=== PATIENT | male | born 1960 | race Caucasian/White ===

== ENCOUNTER 2018-06-08 03:40 | Emergency (ER) | payer MEDICARE, SELFPAY ==
[2018-06-08 03:45] VITALS: BP 160/75; PULSE 85; RESP 20; TEMP 37.1; O2SAT 97
--- NOTE | 2018-06-08 04:37 | W.ED.GENAD ---
Discharge Plan Discharge Details Chief Complaint: RashLesion Clinical Impression: Perirectal skin irritation Reason For Visit: JUAN CARLOS Primary Care Provider: Brent El ED Provider: Arnold Garnica Disposition Patient Disposition: HOME Condition: Good Home Meds and New Rx's Prescriptions: Continue fluconazole [Diflucan] 100 mg Tablet PO DAILY RF: 0 glipizide 5 mg Tablet PO DAILY RF: 0 Discharge Instructions Additional Instructions: Be sure to continue your current medications. Since you are not sure what meds you are on we will unable to do the medication reconciliation today. Take medications as previously prescribed. You should use butt paste or Desitin to help keep the skin protected. Follow-up with primary care in 1-2 weeks. Return to ED for fever, rectal pain, abdominal pain, other concerns. Referrals: Brent El [Primary Care Provider] - Medical Decision Making MDM Narrative Medical decision making narrative: Patient with perirectal area that appears to be candidal in nature as his primary had concluded. He is already on Diflucan as well as antifungal cream. He has a lot of macerated and excoriated skin. Recommend using something like butt paste to help protect the skin. He may use Motrin and Tylenol as needed for discomfort. Follow-up with primary care in the next 1-2 weeks. HPI - General Adult General Mode of arrival: EMS. Date/Time Provider Initiated Documentation: 06/08/18 03:50. Limitations to Documentation: no limitations. Information obtained by: patient. HPI Narrative-FOR DICTATION ONLY HPI Narrative: Patient presents tonight because of pain due to a rash that he has had in his perirectal area for a couple weeks now. This morning it was burning him a lot and he felt he needed to be seen. He had a little bit of nausea but no abdominal pain. He has no difficulty urinating. He is having no difficulty defecating. He has had no fever. He is already on Diflucan as well as a cream. He does report that the rash has actually got better and is no longer in his groin or scrotum but just around the perirectal area. Related Data Home Medications Medication Instructions Recorded Confirmed fluconazole [Diflucan] mg PO DAILY 06/08/18 glipizide mg PO DAILY 06/08/18 Allergies Allergy/AdvReac Type Severity Reaction Status Date / Time No Known Allergies Allergy Unverified 06/08/18 03:50 General Stated Complaint: RashLesion TEGAN: 4 Review of Systems Constitutional Denies chills, Denies fever(s) and Denies malaise Gastrointestinal Denies abdominal pain, Denies diarrhea, Reports nausea and Denies vomiting Genitourinary Denies hematuria, Denies genital pain and Denies dysuria Integumentary/Breasts Reports rash [facility] Medical History Diabetes mellitus (Chronic) HTN (hypertension) (Chronic) Hypercholesterolemia (Chronic) TBI (traumatic brain injury) (Chronic) Social History Smoking/Tobacco Use Status: Never Surgical History S/P appy (Inactive) Exam Const General: cooperative, comfortable and no acute distress Nutritional Appearance: obese Orientation: alert and oriented x3 HENMT Head: normocephalic and atraumatic GI Inspection: normal to inspection Palpation: soft, no guarding and nontender Rectal Exam: visual inspection abnormal excoriations (Significant excoriation and maceration of the perirectal area with satellite lesions consistent with Gisselle infection.) and other (Digital exam not performed. Visualization of the perirectal area done with male rotary driller prospecting present.) Penis: normal penis Scrotum: scrotum normal Skin Rashes: rashes noted (Perirectal area) Course Vital Signs Temperature 98.8 F 06/08/18 03:45 Pulse 85 06/08/18 03:45 Respiratory Rate 20 06/08/18 03:45 Blood Pressure 160/75 H 06/08/18 03:45 Pulse Oximetry 97 06/08/18 03:45 Temperature 98.8 F 06/08/18 03:45 Pulse 85 06/08/18 03:45 Respiratory Rate 20 06/08/18 03:45 Blood Pressure 160/75 H 06/08/18 03:45 Pulse Oximetry 97 06/08/18 03:45
--- NOTE | 2018-06-08 04:45 | ED.GENADUL_ITS ---
Discharge Plan Discharge Details Chief Complaint: RashLesion Clinical Impression: Perirectal skin irritation Reason For Visit: JUAN CARLOS Primary Care Provider: Brent El ED Provider: Arnold Garnica Disposition Patient Disposition: HOME Condition: Good Home Meds and New Rx's Prescriptions: Continue fluconazole [Diflucan] 100 mg Tablet PO DAILY RF: 0 glipizide 5 mg Tablet PO DAILY RF: 0 Discharge Instructions Additional Instructions: Be sure to continue your current medications. Since you are not sure what meds you are on we will unable to do the medication reconciliation today. Take medications as previously prescribed. You should use butt paste or Desitin to help keep the skin protected. Follow-up with primary care in 1-2 weeks. Return to ED for fever, rectal pain, abdominal pain, other concerns. Referrals: Brent El [Primary Care Provider] - Medical Decision Making MDM Narrative Medical decision making narrative: Patient with perirectal area that appears to be candidal in nature as his primary had concluded. He is already on Diflucan as well as antifungal cream. He has a lot of macerated and excoriated skin. Recommend using something like butt paste to help protect the skin. He may use Motrin and Tylenol as needed for discomfort. Follow-up with primary care in the next 1-2 weeks. HPI - General Adult General Mode of arrival: EMS . Date/Time Provider Initiated Documentation: 06/08/18 03:50 . Limitations to Documentation: no limitations . Information obtained by: patient . HPI Narrative-FOR DICTATION ONLY HPI Narrative: Patient presents tonight because of pain due to a rash that he has had in his perirectal area for a couple weeks now. This morning it was burning him a lot and he felt he needed to be seen. He had a little bit of nausea but no abdominal pain. He has no difficulty urinating. He is having no difficulty defecating. He has had no fever. He is already on Diflucan as well as a cream. He does report that the rash has actually got better and is no longer in his groin or scrotum but just around the perirectal area. Related Data Home Medications Medication Instructions Recorded Confirmed fluconazole [Diflucan] mg PO DAILY 06/08/18 glipizide mg PO DAILY 06/08/18 Allergies Allergy/AdvReac Type Severity Reaction Status Date / Time No Known Allergies Allergy Unverified 06/08/18 03:50 General Stated Complaint: RashLesion TEGAN: 4 Review of Systems Constitutional Denies chills, Denies fever(s) and Denies malaise Gastrointestinal Denies abdominal pain, Denies diarrhea, Reports nausea and Denies vomiting Genitourinary Denies hematuria, Denies genital pain and Denies dysuria Integumentary/Breasts Reports rash [facility] Medical History Diabetes mellitus (Chronic) HTN (hypertension) (Chronic) Hypercholesterolemia (Chronic) TBI (traumatic brain injury) (Chronic) Social History Smoking/Tobacco Use Status: Never Surgical History S/P appy (Inactive) Exam Const General: cooperative, comfortable and no acute distress Nutritional Appearance: obese Orientation: alert and oriented x3 HENMT Head: normocephalic and atraumatic GI Inspection: normal to inspection Palpation: soft, no guarding and nontender Rectal Exam: visual inspection abnormal excoriations (Significant excoriation and maceration of the perirectal area with satellite lesions consistent with Gisselle infection.) and other (Digital exam not performed. Visualization of the perirectal area done with male stockroom coordinator present.) Penis: normal penis Scrotum: scrotum normal Skin Rashes: rashes noted (Perirectal area) Course Vital Signs Temperature 98.8 F 06/08/18 03:45 Pulse 85 06/08/18 03:45 Respiratory Rate 20 06/08/18 03:45 Blood Pressure 160/75 H 06/08/18 03:45 Pulse Oximetry 97 06/08/18 03:45 Temperature 98.8 F 06/08/18 03:45 Pulse 85 06/08/18 03:45 Respiratory Rate 20 06/08/18 03:45 Blood Pressure 160/75 H 06/08/18 03:45 Pulse Oximetry 97 06/08/18 03:45
[2018-06-08 04:54] VITALS: BP 160/75; PULSE 85; RESP 20; TEMP 37.1; O2SAT 97
== END 2018-06-08 05:00 | disposition home or self-care (01) ==
LOC: ER 05:08
PROVIDERS: Emergency Provider Emergency Medicine; PCP Internal Medicine
DX: L29.0 Pruritus ani (principal); E11.9 Type 2 diabetes mellitus without complications; I10 Essential (primary) hypertension
CPT/HCPCS: 99283

== ENCOUNTER 2018-11-24 16:53 | Emergency (ER) | payer MEDICARE, SELFPAY ==
[2018-11-24 16:58] VITALS: BP 180/108; PULSE 105; RESP 18; TEMP 36.6; O2SAT 97
--- NOTE | 2018-11-24 17:07 | W.ED.GENAD ---
Discharge Plan Disposition Patient Disposition: HOME Condition: Stable Discharge Details Chief Complaint: Cellulitis Clinical Impression: Abscess, rectum Primary Care Provider: Jake León ED Provider: Jake Rodriguez Home Meds and New Rx's Prescriptions: New metronidazole [Flagyl] 500 mg tablet 500 mg PO TID Qty: 21 RF: 0 ciprofloxacin HCl 500 mg tablet 500 mg PO BID Qty: 14 RF: 0 Discharge Instructions Instructions: Abscess (ED) Additional Instructions: follow up as scheduled with your primary care provider on and discuss being referred to a general surgeon at the [place] If you develop severe abdominal pain, fevers or persistent vomit return to the emergency department Medical Decision Making 57 yo male states he has had intermittent drainage from rectum the past few months. Saw pcp today for drainage and was sent here. No abd pain, fevers, chills, vomit. On exam has fluctuance at 1oclock position that is already draining, no deep fluctuance felt. Discussed the case with [facility] [address] Dr. Rueda who recommended oral abx and f/u as outpatient. HE is a [facility] patient and is going to see his pcp on Friday. He will discuss general surgery f/u with them. Do not feel workup for deeper abscess indicated given superficial abscess on exam. HE understands to return immediately for fevers or worsening pain Differential Diagnosis rectal abscess, colorectal abscess HPI General Mode of arrival: ambulatory. Date/Time Provider Initiated Documentation: 11/24/18 16:55. Limitations to Documentation: no limitations. Information obtained by: patient. History of Present Illness 57 year old M presents to the emergency department with the chief complaint of rectal drainage, described as mild, Patient started experiencing this day(s) (1) and it has been constant. No relieving factors improve symptom(s), No exacerbating factors reported . Patient notes no other symptoms.. Patient did receive the following treatments prior to arrival, none Related Data Home Medications Medication Instructions Recorded Confirmed ciprofloxacin HCl 500 mg PO BID #14 tab 11/24/18 metronidazole [Flagyl] 500 mg PO TID #21 tab 11/24/18 Previous Rx's Medication Instructions Recorded ciprofloxacin HCl 500 mg PO BID #14 tab 11/24/18 metronidazole [Flagyl] 500 mg PO TID #21 tab 11/24/18 Allergies Allergy/AdvReac Type Severity Reaction Status Date / Time No Known Allergies Allergy Unverified 11/24/18 17:04 General Stated Complaint: Cellulitis TEGAN: 3 Review of Systems Review of Systems All systems reviewed & are unremarkable except as noted in HPI and below Constitutional Denies chills, Denies fever(s) and Denies weakness Eyes Denies loss of vision Cardiovascular Denies chest pain and Denies dyspnea Respiratory Denies cough and Denies dyspnea Gastrointestinal Denies abdominal pain, Denies nausea and Denies vomiting Neurologic Denies loss of vision and Denies weakness Psychiatric Denies depression Endocrine Denies cold intolerance and Denies heat intolerance [facility] Medical History Diabetes mellitus (Chronic) HTN (hypertension) (Chronic) Hypercholesterolemia (Chronic) TBI (traumatic brain injury) (Chronic) Social History Smoking and Tabacco status: Never Exam Const General: no acute distress Orientation: alert HENMT Head: normal to inspection Ears: external ears normal General nose exam: external nose normal Mouth: moist mucous membranes Eyes General: appearance normal, both eyes and all related structures Neck Neck: normal visual inspection Resp Effort & Inspection: normal respiratory effort and able to speak in complete sentences Cardio Rate: regular rate GI Palpation: soft and nontender Rectal Exam: other (mild nontender and not warm erythema on both sides of rectal inlet, see mdm) Skin General skin exam: no rashes or lesions noted Neuro General: alert and oriented x3 Extrem General: normal to inspection Psych Mental Status: mental status grossly normal Course Vital Signs Temperature 36.6 C 11/24/18 16:58 Pulse 105 H 11/24/18 16:58 Respiratory Rate 18 11/24/18 16:58 Blood Pressure 180/108 H 11/24/18 16:58 Pulse Oximetry 97 11/24/18 16:58 Temperature 36.6 C 11/24/18 16:58 Temperature Source Temporal Artery Scan 11/24/18 16:58 Pulse 105 H 11/24/18 16:58 Respiratory Rate 18 11/24/18 16:58 Respiratory Effort Non-Labored 11/24/18 17:02 Blood Pressure 180/108 H 11/24/18 16:58 Blood Pressure Position Sitting 11/24/18 16:58 Pulse Oximetry 97 11/24/18 16:58 Oxygen Delivery Method Room Air 11/24/18 16:58 Oxygen Flow Rate 0 11/24/18 16:58 Pain Level 7 11/24/18 16:58
--- NOTE | 2018-11-24 17:11 | ED.GENADUL_ITS ---
Discharge Plan Disposition Patient Disposition: HOME Condition: Stable Discharge Details Chief Complaint: Cellulitis Clinical Impression: Abscess, rectum Primary Care Provider: Jake León ED Provider: Jake Rodriguez Home Meds and New Rx's Prescriptions: New metronidazole [Flagyl] 500 mg tablet 500 mg PO TID Qty: 21 RF: 0 ciprofloxacin HCl 500 mg tablet 500 mg PO BID Qty: 14 RF: 0 Discharge Instructions Instructions: Abscess (ED) Additional Instructions: follow up as scheduled with your primary care provider on and discuss being referred to a general surgeon at the [place] If you develop severe abdominal pain, fevers or persistent vomit return to the emergency department Medical Decision Making 57 yo male states he has had intermittent drainage from rectum the past few months. Saw pcp today for drainage and was sent here. No abd pain, fevers, chills, vomit. On exam has fluctuance at 1oclock position that is already draining, no deep fluctuance felt. Discussed the case with social media content manager surgeon Dr. Rueda who recommended oral abx and f/u as outpatient. HE is a [facility] patient and is going to see his pcp on Friday. He will discuss general surgery f/u with them. Do not feel workup for deeper abscess indicated given superficial abscess on exam. HE understands to return immediately for fevers or worsening pain Differential Diagnosis rectal abscess, colorectal abscess HPI General Mode of arrival: ambulatory . Date/Time Provider Initiated Documentation: 11/24/18 16:55 . Limitations to Documentation: no limitations . Information obtained by: patient . History of Present Illness 57 year old M presents to the emergency department with the chief complaint of rectal drainage, described as mild, Patient started experiencing this day(s) (1) and it has been constant. No relieving factors improve symptom(s), No exacerbating factors reported . Patient notes no other symptoms.. Patient did receive the following treatments prior to arrival, none Related Data Home Medications Medication Instructions Recorded Confirmed ciprofloxacin HCl 500 mg PO BID #14 tab 11/24/18 metronidazole [Flagyl] 500 mg PO TID #21 tab 11/24/18 Previous Rx's Medication Instructions Recorded ciprofloxacin HCl 500 mg PO BID #14 tab 11/24/18 metronidazole [Flagyl] 500 mg PO TID #21 tab 11/24/18 Allergies Allergy/AdvReac Type Severity Reaction Status Date / Time No Known Allergies Allergy Unverified 11/24/18 17:04 General Stated Complaint: Cellulitis TEGAN: 3 Review of Systems Review of Systems All systems reviewed & are unremarkable except as noted in HPI and below Constitutional Denies chills, Denies fever(s) and Denies weakness Eyes Denies loss of vision Cardiovascular Denies chest pain and Denies dyspnea Respiratory Denies cough and Denies dyspnea Gastrointestinal Denies abdominal pain, Denies nausea and Denies vomiting Neurologic Denies loss of vision and Denies weakness Psychiatric Denies depression Endocrine Denies cold intolerance and Denies heat intolerance [facility] Medical History Diabetes mellitus (Chronic) HTN (hypertension) (Chronic) Hypercholesterolemia (Chronic) TBI (traumatic brain injury) (Chronic) Social History Smoking and Tabacco status: Never Exam Const General: no acute distress Orientation: alert HENMT Head: normal to inspection Ears: external ears normal General nose exam: external nose normal Mouth: moist mucous membranes Eyes General: appearance normal, both eyes and all related structures Neck Neck: normal visual inspection Resp Effort & Inspection: normal respiratory effort and able to speak in complete sentences Cardio Rate: regular rate GI Palpation: soft and nontender Rectal Exam: other (mild nontender and not warm erythema on both sides of rectal inlet, see mdm) Skin General skin exam: no rashes or lesions noted Neuro General: alert and oriented x3 Extrem General: normal to inspection Psych Mental Status: mental status grossly normal Course Vital Signs Temperature 36.6 C 11/24/18 16:58 Pulse 105 H 11/24/18 16:58 Respiratory Rate 18 11/24/18 16:58 Blood Pressure 180/108 H 11/24/18 16:58 Pulse Oximetry 97 11/24/18 16:58 Temperature 36.6 C 11/24/18 16:58 Temperature Source Temporal Artery Scan 11/24/18 16:58 Pulse 105 H 11/24/18 16:58 Respiratory Rate 18 11/24/18 16:58 Respiratory Effort Non-Labored 11/24/18 17:02 Blood Pressure 180/108 H 11/24/18 16:58 Blood Pressure Position Sitting 11/24/18 16:58 Pulse Oximetry 97 11/24/18 16:58 Oxygen Delivery Method Room Air 11/24/18 16:58 Oxygen Flow Rate 0 11/24/18 16:58 Pain Level 7 11/24/18 16:58
--- NOTE | 2018-11-24 17:34 | NUR.NOTE ---
Nursing Note: At patient request faxed the discharge instructions and the prescriptions to the [place]. [phone]. Domi Johnson.
== END 2018-11-24 17:33 | disposition home or self-care (01) ==
PROVIDERS: Emergency Provider Emergency Medicine; PCP Internal Medicine
DX: K61.1 Rectal abscess (principal); I10 Essential (primary) hypertension; E11.9 Type 2 diabetes mellitus without complications
CPT/HCPCS: 99283

== ENCOUNTER 2020-09-19 01:50 | Outpatient (CLI) | payer OTHER, MEDICARE, SELFPAY ==
[2020-09-21 21:27] LABS: COVID-19 RT-PCR Result NEGATIVE (Negative)
== END 2020-09-19 02:10 ==
PROVIDERS: PCP Internal Medicine; Visit Provider Nurse Practitioner Primary Care
DX: R50.9 Fever, unspecified (principal); R06.02 Shortness of breath; R53.83 Other fatigue
CPT/HCPCS: U0003

== ENCOUNTER 2023-05-28 14:58 | Emergency (ER) | payer OTHER, SELFPAY ==
[2023-05-28 15:26] VITALS: BP 145/85; PULSE 72; RESP 22; TEMP 36.8; O2SAT 97
--- NOTE | 2023-05-28 16:45 | RT.EKG_ITS ---
APPROVED REPORT Exam: Resting ECG Reason for Exam: dizziness Patient Location: E HR:69 bpm ECG Measurements Heart Rate 69 AXIS SC 224 P 78 QRSd 94 QRS -28 QT 413 T 43 QTc 444 Conclusion Sinus rhythm...normal P axis, V-rate 60- 99 Prolonged SC interval...SC >220, V-rate 50- 90 sinus tach, left axis, non ischemic
[2023-05-28 17:20] LABS: Abs Immature Grans 0.04 10^3/uL (0.0-0.06); Absolute Basophil Count 0.05 10^3/uL (0.0-0.2); Absolute Lymphocyte Count 2.32 10^3/uL (1.2-3.4); Absolute Monocyte Count 0.69 10^3/uL (0.1-0.8); Absolute Neutrophil Count 4.97 10^3/uL (1.2-6.7); Basophils % 0.6; Eosinophils % 3.6; HCT 43.4 % (40.0-50.0); HGB 15.1 g/dL (13.5-17.5); Immature Grans % 0.5; Lymphocytes % 27.7; MCHC 34.8 % (32.0-36.0); MCV 86 fL (80-95); MPV 8.8 fL (8.0-11.0); Monocytes % 8.2; Neutrophils % 59.4; Platelet Count 220 10^3/uL (130-400); RBC 5.03 10^6/uL (4.36-5.78); RDW 13.1 % (11.8-14.1); WBC 8.37 10^3/uL (4.4-10.8)
[2023-05-28 17:29] LABS: Bilirubin Negative (Negative); Blood Negative (Negative); Clarity Clear (Clear); Glucose Negative (Negative); Ketones Negative (Negative); Leukocyte Esterase Negative (Negative); Nitrite Negative (Negative); Specific Gravity >= 1.030 (1.005-1.025); pH 5.5 (5-8)
[2023-05-28 17:30] LABS: ALT 35 U/L (16-63); AST 18 U/L (15-37); Alkaline Phosphatase 95 U/L (46-116); Anion Gap 4.3 mmol/L (3-11); BUN 21 mg/dL (7-18); Bilirubin, Total 0.6 mg/dL (0.2-1.0); CO2 31.7 mmol/L (21.0-32.0); CREATININE 1.2 mg/dL (0.70-1.30); Chloride 102 mmol/L (98-107); Estimated GFR 67.95 (mL/min/1.73m2); Glucose 121 mg/dL (74-106); Magnesium 1.8 mg/dL (1.8-2.4); Potassium 4.2 mmol/L (3.5-5.1); Sodium 138 mmol/L (136-145); Total Protein 7.6 g/dL (6.4-8.2)
--- NOTE | 2023-05-28 17:50 | W.ED.GENAD ---
Discharge Plan Disposition Patient Disposition: Home Discharge Details Clinical Impression: Malaise Primary Care Provider: Jake León ED Provider: Frances Edward Home Meds and New Rx's Prescriptions: Continued bupropion HCl 150 mg Tablet Sustained-Release 12 Hr 300 mg PO DAILY atorvastatin 20 mg Tablet 20 mg PO DAILY ibuprofen 800 mg Tablet 800 mg PO TID PRN metoprolol tartrate 100 mg Tablet 100 mg PO BID glipizide 10 mg Tablet 20 mg PO BID lisinopril 10 mg Tablet 40 mg PO DAILY omeprazole 20 mg Capsule,Delayed Release(Dr/Ec) 20 mg PO BID albuterol sulfate 90 mcg/actuation Hfa Aerosol Inhaler 2 puff INHALATION QID PRN fluticasone propionate 50 mcg/actuation [place],Suspension 2 spray INTRANASAL DAILY cetirizine 10 mg Tablet 10 mg PO DAILY carbidopa 25 mg Tablet 25 mg PO TID gabapentin 300 mg Tablet 300 mg PO BID aripiprazole 2 mg Tablet 2 mg PO DAILY cholecalciferol (vitamin D3) 50 mcg (2,000 unit) Tablet 100 mcg PO DAILY semaglutide 0.25 mg or 0.5 mg(2 mg/1.5 mL) Pen Injector 0.25 mg SUBCUT 4-8XD Rx Instructions: once a week Discharge Instructions Additional Instructions: follow-up with your primary care physician, your diagnostic labs all are within normal limits Please return should you have new or worsening complaints Referrals: Jake León [Primary Care Provider] - Medical Decision Making 62-year-old male, alert, oriented, of decisional capacity, nonfocal neurological exam, essentially asymptomatic at time of assessment, secondary to history of diabetes, diagnostic blood work was ordered and EKG, these do not show evidence of acute abnormality Patient is ambulatory with steady gait with a nonfocal neurological exam He is discharged home in stable condition with stable vitals, return precautions reviewed and patient expressed understanding, HPI General Date/Time Provider Initiated Documentation: 05/28/23 16:50. HPI Narrative: This 62-year-old male presents with nausea and vomiting which started Friday, he had 1 episode this is resolved. He also lost his balance on Friday, he has a history of TBI and states that this is not new for him, he denies any head injury. He denies any current complaints. [facility] He denies chest pain, shortness of breath, dizziness, weakness, persistent nausea and vomiting, or any additional complaints at this time. Related Data Home Medications Medication Instructions Recorded Confirmed albuterol sulfate 90 mcg/actuation 2 puff inhalation QID PRN 11/24/18 11/24/18 aerosol inhaler atorvastatin 20 mg tablet 20 mg PO DAILY 11/24/18 11/24/18 bupropion HCl 150 mg tablet,12 hr 300 mg PO DAILY 11/24/18 05/28/23 sustained-release fluticasone propionate 50 2 spray intranasal DAILY 11/24/18 11/24/18 mcg/actuation nasal spray,suspension glipizide 10 mg tablet 20 mg PO BID 11/24/18 11/24/18 ibuprofen 800 mg tablet 800 mg PO TID PRN 11/24/18 11/24/18 lisinopril 10 mg tablet 40 mg PO DAILY 11/24/18 05/28/23 metoprolol tartrate 100 mg tablet 100 mg PO BID 11/24/18 11/24/18 omeprazole 20 mg capsule,delayed 20 mg PO BID 11/24/18 11/24/18 release aripiprazole 2 mg tablet 2 mg PO DAILY 05/28/23 05/28/23 carbidopa 25 mg tablet 25 mg PO TID 05/28/23 05/28/23 cetirizine 10 mg tablet 10 mg PO DAILY 05/28/23 05/28/23 cholecalciferol (vitamin D3) 50 100 mcg PO DAILY 05/28/23 05/28/23 mcg (2,000 unit) tablet gabapentin 300 mg tablet 300 mg PO BID 05/28/23 05/28/23 semaglutide 0.25 mg or 0.5 mg (2 0.25 mg subcut 4-8XD 05/28/23 05/28/23 mg/1.5 mL) subcutaneous pen injector Allergies Allergy/AdvReac Type Severity Reaction Status Date / Time No Known Allergies Allergy Unverified 05/28/23 15:15 General Stated Complaint: Nausea/Vomit/Diar TEGAN: 3 PFSH All Active Problems (Updated 05/28/23 @ 17:52 by MATT Augustine) Malaise (Acute) Medical History (Updated 05/28/23 @ 17:52 by MATT Augustine) Diabetes mellitus HTN (hypertension) Hypercholesterolemia TBI (traumatic brain injury) Surgical History S/P appy Social History Smoking/Tobacco Use Status: Never Smoking risk assessment performed?: Yes Drug use: Never Do you feel safe in your relationship?: Yes Course Vital Signs Vital signs: Vital Signs Temperature 36.8 C 05/28/23 15:26 Pulse 72 05/28/23 15:26 Respiratory Rate 22 05/28/23 15:26 Blood Pressure 145/85 H 05/28/23 15:26 Pulse Oximetry 97 05/28/23 15:26 Temperature 36.8 C 05/28/23 15:26 Temperature Source Temporal Artery Scan 05/28/23 15:26 Pulse 72 05/28/23 15:26 Respiratory Rate 22 05/28/23 15:26 Blood Pressure 145/85 H 05/28/23 15:26 Blood Pressure Position Sitting 05/28/23 15:26 Pulse Oximetry 97 05/28/23 15:26 Oxygen Delivery Method Room Air 05/28/23 15:26 Oxygen Flow Rate 0 05/28/23 15:26 Pain Level 0 05/28/23 15:26 Lab/Test Results Lab/Test Results: Laboratory Tests Range/Units 05/28/23 05/28/23 05/28/23 17:06 17:06 17:22 WBC (4.4-10.8) 10^3/uL 8.37 RBC (4.36-5.78) 10^6/uL 5.03 Hgb (13.5-17.5) g/dL 15.1 Hct (40.0-50.0) % 43.4 MCV (80-95) fL 86 MCH (27.0-33.0) pg 30.0 MCHC (32.0-36.0) % 34.8 RDW (11.8-14.1) % 13.1 Plt Count (130-400) 10^3/uL 220 MPV (8.0-11.0) fL 8.8 Immature Gran % 0.5 Neutrophils % 59.4 Lymphocytes % 27.7 Monocytes % 8.2 Eosinophils % 3.6 Basophils % 0.6 Nucleated RBC % (0.0-0.3) % 0.0 Absolute Neutrophils (1.2-6.7) 10^3/uL 4.97 Absolute Lymphocytes (1.2-3.4) 10^3/uL 2.32 Absolute Monocytes (0.1-0.8) 10^3/uL 0.69 Absolute Eosinophils (0.0-0.7) 10^3/uL 0.30 Absolute Basophils (0.0-0.2) 10^3/uL 0.05 Sodium (136-145) mmol/L 138 Potassium (3.5-5.1) mmol/L 4.2 Chloride (98-107) mmol/L 102 Carbon Dioxide (21.0-32.0) mmol/L 31.7 Anion Gap (3-11) mmol/L 4.3 BUN (7-18) mg/dL 21 H Creatinine (0.70-1.30) mg/dL 1.2 Est GFR (CKD-EPI 2020) (mL/min/1.73m2) 67.95 Glucose (74-106) mg/dL 121 H Calcium (8.5-10.1) mg/dL 10.0 Magnesium (1.8-2.4) mg/dL 1.8 Total Bilirubin (0.2-1.0) mg/dL 0.6 AST (15-37) U/L 18 ALT (16-63) U/L 35 Alkaline Phosphatase (46-116) U/L 95 Total Protein (6.4-8.2) g/dL 7.6 Albumin (3.4-5.0) g/dL 4.0 Urine Color (Yellow) Yellow Urine Clarity (Clear) Clear Urine pH (5-8) 5.5 Ur Specific [place] (1.005-1.025) >= 1.030 H Urine Protein (Negative) mg/dL Negative Urine Ketones (Negative) mg/dL Negative Urine Blood (Negative) Negative Urine Nitrite (Negative) Negative Urine Bilirubin (Negative) Negative Urine Urobilinogen (Up to 0.2) mg/dL 1.0 H Ur Leukocyte Esterase (Negative) Negative Urine Glucose (Negative) mg/dL Negative
[2023-05-28 18:22] VITALS: BP 147/89; PULSE 75; TEMP 34.6; O2SAT 98
== END 2023-05-28 18:20 | disposition home or self-care (01) ==
PROVIDERS: Emergency Provider Physician Assistant; PCP Internal Medicine
DX: R11.2 Nausea with vomiting, unspecified (principal); R53.81 Other malaise; E78.00 Pure hypercholesterolemia, unspecified; E11.9 Type 2 diabetes mellitus without complications; I10 Essential (primary) hypertension; Z87.820 Personal history of traumatic brain injury
CPT/HCPCS: 80053; 93005; 99283; 81003; 83735; 85025; 93010

== ENCOUNTER 2024-03-17 13:28 | Emergency (ER) | payer OTHER, SELFPAY ==
[2024-03-17 13:32] VITALS: BP 124/71; PULSE 74; RESP 16; TEMP 36.5; O2SAT 98
--- NOTE | 2024-03-17 13:45 | DI.RAD_ITS ---
Exam(s) XR FOREARM LT EXAM: XR FOREARM LT CLINICAL HISTORY: Fall, injury. TECHNIQUE: 2D digital imaging was performed. COMPARISON: No exams were available for comparison FINDINGS: Two views. No evidence of fracture or dislocation. No elbow joint effusion some dorsal soft tissue swelling is noted at the mid aspect of the forearm but no subjacent osseous findings. IMPRESSION: No acute osseous findings in the radius and ulna DATA REPOSITORY: RADIATION DOSE DELIVERED:
--- NOTE | 2024-03-17 13:51 | ED.GENADUL_ITS ---
Discharge Plan Disposition Patient Disposition: Home Condition: Stable Discharge Details Clinical Impression: Contusion of arm, left, Fall, Closed head injury without loss of consciousness Primary Care Provider: Jake León ED Provider: Lyndsay Calabrese Home Meds and New Rx's Prescriptions: Continued bupropion HCl 150 mg tablet extended release 24 hr 150 mg PO QAM Artificial Tears (cmc) 1 % drops 1 drp ophthalmic (eye) 4-6XD PRN cholecalciferol (vitamin D3) 25 mcg (1,000 unit) tablet 25 mcg PO DAILY lorazepam 1 mg tablet 1 mg PO DAILY PRN miconazole nitrate [Antifungal (miconazole)] 2 % cream 1 applic topical DAILY montelukast 10 mg tablet 10 mg PO DAILY nifedipine 60 mg tablet extended release 60 mg PO DAILY bisacodyl [Dulcolax (bisacodyl)] 5 mg tablet,delayed release (DR/EC) 5 mg PO ONCE Qty: 4 0RF Rx Instructions: Take per colonoscopy instructions provided by ordering providers office polyethylene glycol 3350 17 gram/dose powder 17 g PO ONCE Qty: 238 0RF Rx Instructions: Take per colonoscopy instructions provided by ordering providers office atorvastatin 20 mg Tablet 20 mg PO DAILY metoprolol tartrate 100 mg Tablet 100 mg PO BID omeprazole 20 mg Capsule,Delayed Release(Dr/Ec) 20 mg PO BID fluticasone propionate 50 mcg/actuation [place],Suspension 2 spray INTRANASAL DAILY cetirizine 10 mg Tablet 10 mg PO DAILY gabapentin 300 mg Tablet 300 mg PO BID aripiprazole 2 mg Tablet 2 mg PO DAILY semaglutide 0.25 mg or 0.5 mg(2 mg/1.5 mL) Pen Injector 0.25 mg SUBCUT 4-8XD Rx Instructions: once a week Discharge Instructions Instructions: Minor Contusion ED, Minor Head Injury, Adult ED Additional Instructions: She at this time there is no evidence for left arm fracture, apply ice on and off every 20 minutes for the first couple of days as needed to decrease swelling,, you may take Tylenol every 4-6 hours as needed for pain. Keep abrasions clean and dry, change dressing daily, return for any signs of infection such as red streaks, swelling drainage. Please return to the ER for any worsening headache not relieved by Tylenol, confusion, vomiting, dizziness, or signs of worsening head injury. Follow up with primary care provider in 3-5 days. Return to ED sooner if any worsening or concerns. Referrals: Jake Lóen [Primary Care Provider] - 5 days Discharge Data Discharge Date/Time-TO BE ENTERED AT DEPARTURE: 03/17/24 15:39 HPI General Mode of arrival: ambulatory . Date/Time Provider Initiated Documentation: 03/17/24 13:39 . Limitations to Documentation: no limitations . Information obtained by: patient, RN notes reviewed and old records reviewed . HPI Narrative: 63-year-old male presents to the ER with a chief complaint of left forearm abrasion, swelling after tripping in the garage. He does take aspirin 81 mg daily. He reports he bumped his head no loss of consciousness. He denies any headache. No gross motor neurodeficits noted. He does have a history of Parkinson's and does have a tremor at rest, other past medical history includes TBI, hypertension hypercholesterol diabetes mellitus. He is unsure when his last tetanus vaccination was, he does have distal CMS intact is able to flex his wrist and elbow without difficulty. No other obvious deformities. No C-spine T-spine L-spine tenderness with palpation. Denies any chest pain abdominal pain. He did not take any medications prior to arrival. Related Data Home Medications Medication Instructions Recorded Confirmed atorvastatin 20 mg tablet 20 mg PO DAILY 11/24/18 01/30/24 fluticasone propionate 50 2 spray intranasal DAILY 11/24/18 01/30/24 mcg/actuation nasal spray,suspension metoprolol tartrate 100 mg tablet 100 mg PO BID 11/24/18 01/30/24 omeprazole 20 mg capsule,delayed 20 mg PO BID 11/24/18 01/30/24 release aripiprazole 2 mg tablet 2 mg PO DAILY 05/28/23 01/30/24 cetirizine 10 mg tablet 10 mg PO DAILY 05/28/23 01/30/24 gabapentin 300 mg tablet 300 mg PO BID 05/28/23 01/30/24 semaglutide 0.25 mg or 0.5 mg (2 0.25 mg subcut 4-8XD 05/28/23 01/30/24 mg/1.5 mL) subcutaneous pen injector bupropion HCl 150 mg 24 hr tablet, 150 mg PO QAM 01/22/24 01/30/24 extended release carboxymethylcellulose sodium 1 % 1 drp ophthalmic (eye) 4-6XD PRN 01/22/24 01/30/24 eye drops (Artificial Tears (carboxymethylcellulose)) cholecalciferol (vitamin D3) 25 25 mcg PO DAILY 01/22/24 01/30/24 mcg (1,000 unit) tablet lorazepam 1 mg tablet 1 mg PO DAILY PRN 01/22/24 01/30/24 miconazole nitrate 2 % topical 1 applic topical DAILY 01/22/24 01/30/24 cream (Antifungal (miconazole)) montelukast 10 mg tablet 10 mg PO DAILY 01/22/24 01/30/24 nifedipine 60 mg tablet,extended 60 mg PO DAILY 01/22/24 01/30/24 release bisacodyl 5 mg tablet,delayed 5 mg PO ONCE #4 tabs 01/29/24 01/30/24 release (Dulcolax (bisacodyl)) polyethylene glycol 3350 17 17 g PO ONCE #238 grams 01/29/24 01/30/24 gram/dose oral powder Previous Rx's Medication Instructions Recorded bisacodyl 5 mg tablet,delayed 5 mg PO ONCE #4 tabs 01/29/24 release (Dulcolax (bisacodyl)) polyethylene glycol 3350 17 17 g PO ONCE #238 grams 01/29/24 gram/dose oral powder Allergies Allergy/AdvReac Type Severity Reaction Status Date / Time No Known Allergies Allergy Unverified 03/17/24 13:35 General Stated Complaint: Orthopedic TEGAN: 3 Review of Systems All systems reviewed & are unremarkable except as noted in HPI and below Constitutional Constitutional: Reports as per HPI and Denies headache(s) ENT Ears, Nose, Mouth, and Throat: Denies headache(s) and Denies neck pain Musculoskeletal Musculoskeletal: Reports as per HPI, Denies neck pain and Denies numbness Neurologic Neurologic: Denies headache(s) and Denies numbness Exam Narrative Exam Narrative: General: Well Developed, Awake and Alert, conversant. Patient is a , he is pleasant, Skin: Warm and Dry HEENT: Head: No palpable deformities, Normocephalic, no Navarro sign, Eyes: Pupils PERRLA, EOM's intact. Nose/Face: Atraumatic. Facial bones nontender to palpation and stable Mouth/Throat: No intraoral trauma. Teeth and mandible are intact. Neck: No midline tenderness, no step off, no deformity to palpation of C-spine. Trachea midline. Chest: No surface trauma. Nontender without crepitus or deformity. Lungs clear to ausculatation bilaterally. Heart: RRR, no rubs, murmurs or gallop. Abdomen: No abrasions, ecchymosis, or surface trauma. Nondistended. Nontender to palpation no guarding, rebound, or rigidity. Pelvis: Nontender to palpation and stable to compression. Femoral pulses strong and equal Extremities: Superficial abrasions and contusion noted surrounding left posterior forearm, distal sensation movement intact. Peripheral pulses intact and equal. Neuro: ANO x4, GCS 15, is slightly slow to respond, does have a history of TBI and Parkinson's motor and sensory exam nonfocal. Does have resting tremor in the upper extremities, Extrem General: normal to inspection and full ROM Right upper extremity: normal to inspection Left upper extremity: normal capillary refill and elbow/forearm Details: tenderness, swelling, abrasion and distal pulses intact Elbow/forearm/wrist images: 2 1. Abrasion 2. Abrasion with surrounding hematoma/contusion noted Right lower extremity: normal to inspection Left lower extremity: normal to inspection Course Vital Signs Vital signs: Vital Signs Temperature 36.5 C 03/17/24 13:32 Pulse 74 03/17/24 13:32 Respiratory Rate 16 03/17/24 13:32 Blood Pressure 124/71 03/17/24 13:32 Pulse Oximetry 98 03/17/24 13:32 Temperature 36.5 C 03/17/24 13:32 Pulse 74 03/17/24 13:32 Respiratory Rate 16 03/17/24 13:32 Blood Pressure 124/71 03/17/24 13:32 Blood Pressure Position Sitting 03/17/24 13:32 Pulse Oximetry 98 03/17/24 13:32 Pain Level 3 03/17/24 13:32 Comment pain in arm 03/17/24 13:32 Medical Decision Making 63-year-old male presents to the ER with a chief complaint of left forearm abrasion, swelling after tripping in the garage. He does take aspirin 81 mg daily. He reports he bumped his head no loss of consciousness. He denies any headache. No gross motor neurodeficits noted. He does have a history of Parkinson's and does have a tremor at rest, other past medical history includes TBI, hypertension hypercholesterol diabetes mellitus. He is unsure when his last tetanus vaccination was, he does have distal CMS intact is able to flex his wrist and elbow without difficulty. No other obvious deformities. No C-spine T-spine L-spine tenderness with palpation. Denies any chest pain abdominal pain. He did not take any medications prior to arrival. X-ray ordered, wound care, Tdap, ice pack and Tylenol. Differential diagnose includes but not limited to occult fracture, fracture, hematoma, contusion, less likely intracranial bleed as patient does not have any neurodeficits other than baseline Parkinson's. X-ray within normal limits will discharge patient home with wound care. This text was generated using [employer] system, please disregard any oddities of phrase or misspellings. Quality:SDOH Health Related Social Needs: 2 No Data to Display PFSH All Active Problems (Updated 03/17/24 @ 14:59 by Lyndsay Calabrese NP) Closed head injury without loss of consciousness (Acute) Fall (Acute) Contusion of arm, left (Acute) Post-traumatic stress disorder, chronic (Acute) Parkinson's disease with dyskinesia without fluctuating manifestations (Acute) Obesity (Chronic) Major depressive disorder, recurrent (Acute) Insomnia (Acute) Homonymous hemianopsia (Acute) Generalized anxiety disorder (Acute) Esophageal reflux (Chronic) Medical History (Updated 03/17/24 @ 14:59 by Lyndsay Calabrese NP) TBI (traumatic brain injury) HTN (hypertension) Hypercholesterolemia Diabetes mellitus Surgical History S/P appy Social History Smoking/Tobacco Use Status: Never Smoking risk assessment performed?: Yes Drug use: Never Substance use type: does not use Housing: house Do you feel safe at home: Yes Do you feel safe in your relationship?: Yes
[2024-03-17] MEDS: Acetaminophen 500 MG TAB PO (14:10)
[2024-03-17 15:41] VITALS: BP 124/71; PULSE 74; RESP 16; TEMP 36.5; O2SAT 98
== END 2024-03-17 15:39 | disposition home or self-care (01) ==
LOC: ER 15:15
PROVIDERS: Emergency Provider Registered Nurse Emergency; PCP Internal Medicine
DX: S00.80XA Unspecified superficial injury of other part of head, initial encounter (principal); S50.12XA Contusion of left forearm, initial encounter; I10 Essential (primary) hypertension; G20.A1 Parkinson's disease without dyskinesia, without mention of fluctuations; E78.00 Pure hypercholesterolemia, unspecified; Z23 Encounter for immunization; Z79.84 Long term (current) use of oral hypoglycemic drugs; E11.9 Type 2 diabetes mellitus without complications; W01.0XXA Fall on same level from slipping, tripping and stumbling without subsequent striking against object, initial encounter; Y93.89 Activity, other specified; Y92.015 Private garage of single-family (private) house as the place of occurrence of the external cause
CPT/HCPCS: 90471; 99283; 73090

== ENCOUNTER 2024-05-24 17:36 | Observation (INO) | payer OTHER, SELFPAY ==
[2024-05-24 17:35] VITALS: PULSE 76; RESP 18; TEMP 36.8; O2SAT 90
[2024-05-24 17:40] VITALS: RESP 18; O2SAT 91
[2024-05-24 18:00] VITALS: BP 75/44; PULSE 140; RESP 14; O2SAT 99
--- NOTE | 2024-05-24 18:30 | DI.CT_ITS ---
Exam(s) CT ABDOMEN PELVIS W EXAM: CT ABDOMEN PELVIS W CLINICAL HISTORY: ABDOMINAL PAIN. TECHNIQUE: Imaging Protocol: Axial computed tomography images with coronal and sagittal reformatted images were created and reviewed CONTRAST MATERIAL: Intravenous: Omnipaque 350 Contrast volume:100 ml Oral: / no COMPARISON: No exams were available for comparison FINDINGS: ABDOMEN and PELVIS: Lung Bases: No acute findings. Liver: Normal density. No suspicious mass. Gallbladder and biliary tract: No radiodense calculus. No biliary dilation. Pancreas: Normal density. No abnormal calcifications or inflammatory process. No evidence of mass. Spleen: Normal. Kidneys: Normal size, contour and axis. No radiodense stones. No obstructive uropathy. No suspicious masses seen. Adrenal glands: No masses seen. Vasculature: Abdominal aorta non-dilated. Soft tissues: Small fatty containing left inguinal hernia. Bladder: Decompressed by Bergeron catheter. Question of wall thickening. Bowel: No obstruction. Rectal tube in place. Abnormal wall thickening of the sigmoid above the leve l of the rectal tube. Abnormal wall thickening of the descending colon as well. Findings consistent with colitis. diverticulosis of the descending and sigmoid colon. Peritoneal cavity: No ascites. No focal collection. No mesenteric inflammatory response. Bones: Unremarkable for age. Reproductive organs: Unremarkable. Lymph nodes: Mildly enlarged lymph nodes in the left lower quadrant and right groin region, presumabl y reactive. IMPRESSION:: Findings consistent with colitis of the lower descending and sigmoid colon. Rectal tub e in place. Reactive left lower quadrant and left groin lymph nodes. Bladder decompressed by Bergeron catheter and not well evaluated. RADIATION DOSE DELIVERED: Total DLP DATA REPOSITORY: All CT scans at this facility are submitted to the National Radiology Data Registry (NRDR) Dose Index Registry (DIR) with the [employer] (ACR). RADIATION OPTIMIZATION: All CT scans at this facility use at least one of these dose optimization te chniques: automated exposure control; mA and/or kV adjustment per patient size (includes targeted exa ms where dose is matched to clinical indication); or iterative reconstruction.
[2024-05-24 18:34] LABS: Absolute Basophil Count 0.04 10^3/uL (0.0-0.2); Absolute Lymphocyte Count 0.67 10^3/uL (1.2-3.4); Basophils % 0.3 %; Eosinophils % 0.2 %; HCT 38.2 % (40.0-50.0); HGB 12.9 g/dL (13.5-17.5); Immature Grans % 0.8 %; Lymphocytes % 5.4 %; MCH 29.2 pg (27.0-33.0); MCHC 33.8 % (32.0-36.0); MCV 86 fL (80-95); Monocytes % 8.8 %; Neutrophils % 84.5 %; Platelet Count 162 10^3/uL (130-400); RBC 4.42 10^6/uL (4.36-5.78); RDW-SD 40.9 fL; WBC 12.46 10^3/uL (4.4-10.8)
[2024-05-24 18:35] LABS: Absolute Eosinophil Count 0.02 10^3/uL (0.0-0.7); Absolute Neutrophil Count 10.53 10^3/uL (1.2-6.7)
[2024-05-24 18:49] LABS: Lactate 1.7 mmol/L (0.9-1.7)
[2024-05-24 19:14] LABS: ALT 14 U/L (16-63); AST 17 U/L (15-37); Albumin 2.4 g/dL (3.4-5.0); Alkaline Phosphatase 91 U/L (46-116); Anion Gap 9.5 mmol/L (3-11); BUN 29 mg/dL (7-18); Bilirubin, Total 0.77 mg/dL (0.2-1.0); CO2 21.5 mmol/L (21.0-32.0); CREATININE 1.8 mg/dL (0.70-1.30); Calcium 9.1 mg/dL (8.5-10.1); Chloride 105 mmol/L (98-107); Estimated GFR 41.51 (mL/min/1.73m2); Glucose 188 mg/dL (74-106); Magnesium 2.2 mg/dL (1.8-2.4); NT-proBNP 590 pg/mL (<300); Sodium 136 mmol/L (136-145); Total Protein 6.4 g/dL (6.4-8.2); Troponin I < 50 ng/L (< or =60)
[2024-05-24] MEDS: Normal Saline 1,000 ML 1000 ML IV (19:22)
[2024-05-24 19:48] LABS: Bilirubin Small (Negative); Blood Negative (Negative); Clarity Clear (Clear); Glucose Negative (Negative); Ketones Trace mg/dL (Negative); Leukocyte Esterase Negative (Negative); Nitrite Negative (Negative); Specific Gravity 1.025 (1.005-1.025)
[2024-05-24 19:55] LABS: Bacteria Negative HPF (Negative); C & S Indicated? No; Crystals Negative HPF (Negative); Epithelial Cells Moderate HPF (Negative); Mucus Moderate (Negative); Other Cells Rare Renal (Negative); RBC Negative HPF (0-2)
[2024-05-24] MEDS: Omnipaque 350 MG/ML 100 ML BTL IJ (20:17)
[2024-05-24] MEDS: Normal Saline - Diluent 50 ML VIAL IJ (20:17)
--- NOTE | 2024-05-24 21:12 | DI.VRAD_ITS ---
PROCEDURE INFORMATION: Exam: CT Abdomen And Pelvis With Contrast Exam date and time: 05/24/2024 8:16 PM Age: 63 years old Clinical indication: Abdominal pain TECHNIQUE: Imaging protocol: Computed tomography of the abdomen and pelvis with contrast. Contrast material: OMNIPAQUE; Contrast volume: 100 ml; Contrast route: INTRAVENOUS (IV); COMPARISON: No relevant prior studies available. FINDINGS: Lungs: Calcified granuloma in the right lung base. Liver: Normal. No mass or intrahepatic biliary ductal dilatation. Gallbladder and biliary ducts: Normal. No calcified stones. No ductal dilation. Pancreas: Normal. No mass or ductal dilation. Spleen: Normal. No splenomegaly. Adrenal glands: Normal. No mass. Kidneys and ureters: Normal. No hydronephrosis, calculus, cyst or mass. Stomach and bowel: Stomach and small bowel are normal. There are scattered diverticula in the colon. There is diffuse colonic wall thickening involving the descending and sigmoid colonic segments. Appendix: No evidence of appendicitis. Intraperitoneal space: Unremarkable. No free air. No significant fluid collection. Vasculature: Mild aortic atherosclerosis. Lymph nodes: No enlarged retroperitoneal or mesenteric lymph nodes. Urinary bladder: Bergeron catheter in the bladder. Reproductive: Unremarkable as visualized. Bones/joints: Unremarkable. No acute fracture. No lytic lesion. Soft tissues: Unremarkable. IMPRESSION: Wall thickening throughout the descending and sigmoid colon suggests colitis. Dictated and Authenticated by: Leo Gunter MD. Ordering:JAZMYNE Hobbs MD
[2024-05-24] MEDS: PIPERACILLIN/TAZO 4.5 GM in Normal Saline 100 ML IVPB (21:21)
--- NOTE | 2024-05-24 21:43 | W.ED.GENAD ---
Discharge Plan Disposition Patient Disposition: Admit to [facility] Condition: Fair Discharge Details Clinical Impression: Colitis Primary Care Provider: Jake León ED Provider: Dakota Raphael Home Meds and New Rx's Prescriptions: No Action bupropion HCl 150 mg tablet extended release 24 hr 150 mg PO QAM Artificial Tears (cmc) 1 % drops 1 drp ophthalmic (eye) 4-6XD PRN cholecalciferol (vitamin D3) 25 mcg (1,000 unit) tablet 25 mcg PO DAILY lorazepam 1 mg tablet 1 mg PO DAILY PRN miconazole nitrate [Antifungal (miconazole)] 2 % cream 1 applic topical DAILY montelukast 10 mg tablet 10 mg PO DAILY nifedipine 60 mg tablet extended release 60 mg PO DAILY bisacodyl [Dulcolax (bisacodyl)] 5 mg tablet,delayed release (DR/EC) 5 mg PO ONCE Qty: 4 0RF Rx Instructions: Take per colonoscopy instructions provided by ordering providers office polyethylene glycol 3350 17 gram/dose powder 17 g PO ONCE Qty: 238 0RF Rx Instructions: Take per colonoscopy instructions provided by ordering providers office peg 3350-electrolytes [Golytely] 236-22.74-6.74 -5.86 gram recon soln 240 ml PO Q10M Qty: 4000 0RF Rx Instructions: until fecal effluent is clear atorvastatin 20 mg Tablet 20 mg PO DAILY metoprolol tartrate 100 mg Tablet 100 mg PO BID omeprazole 20 mg Capsule,Delayed Release(Dr/Ec) 20 mg PO BID fluticasone propionate 50 mcg/actuation Leopold,Suspension 2 spray INTRANASAL DAILY cetirizine 10 mg Tablet 10 mg PO DAILY gabapentin 300 mg Tablet 300 mg PO BID aripiprazole 2 mg Tablet 2 mg PO DAILY semaglutide 0.25 mg or 0.5 mg(2 mg/1.5 mL) Pen Injector 0.25 mg SUBCUT 4-8XD Rx Instructions: once a week HPI General Date/Time Provider Initiated Documentation: 05/24/24 17:37. Limitations to Documentation: no limitations. Information obtained by: patient and EMS. HPI Narrative: 63-year-old gentleman with past medical history of Parkinson's disease presents for evaluation of loss of consciousness and diarrhea. Patient reports that today he started having multiple episodes of watery diarrhea. Associated with some abdominal cramping, but not severe abdominal pain. No fever or vomiting. He did have some vomiting last week. Has not noted any blood in his diarrhea. Today he was found to be unresponsive on the toilet. EMS reports on their arrival he was bradycardic as well as hypotensive. They were able to get him off the toilet and started giving fluids which did improve his mental status. The patient has no recollection of this event. He states that he remembers going to the bathroom and then later woke up in an ambulance Related Data Home Medications ?Medication ?Instructions ?Recorded ?Confirmed atorvastatin 20 mg tablet 20 mg PO DAILY 11/24/18 01/30/24 fluticasone propionate 50 2 spray intranasal DAILY 11/24/18 01/30/24 mcg/actuation nasal spray,suspension metoprolol tartrate 100 mg tablet 100 mg PO BID 11/24/18 01/30/24 omeprazole 20 mg capsule,delayed 20 mg PO BID 11/24/18 01/30/24 release aripiprazole 2 mg tablet 2 mg PO DAILY 05/28/23 01/30/24 cetirizine 10 mg tablet 10 mg PO DAILY 05/28/23 01/30/24 gabapentin 300 mg tablet 300 mg PO BID 05/28/23 01/30/24 semaglutide 0.25 mg or 0.5 mg (2 0.25 mg subcut 4-8XD 05/28/23 01/30/24 mg/1.5 mL) subcutaneous pen injector bupropion HCl 150 mg 24 hr tablet, 150 mg PO QAM 01/22/24 01/30/24 extended release carboxymethylcellulose sodium 1 % 1 drp ophthalmic (eye) 4-6XD PRN 01/22/24 01/30/24 eye drops (Artificial Tears (carboxymethylcellulose)) cholecalciferol (vitamin D3) 25 25 mcg PO DAILY 01/22/24 01/30/24 mcg (1,000 unit) tablet lorazepam 1 mg tablet 1 mg PO DAILY PRN 01/22/24 01/30/24 miconazole nitrate 2 % topical 1 applic topical DAILY 01/22/24 01/30/24 cream (Antifungal (miconazole)) montelukast 10 mg tablet 10 mg PO DAILY 01/22/24 01/30/24 nifedipine 60 mg tablet,extended 60 mg PO DAILY 01/22/24 01/30/24 release bisacodyl 5 mg tablet,delayed 5 mg PO ONCE #4 tabs 01/29/24 01/30/24 release (Dulcolax (bisacodyl)) polyethylene glycol 3350 17 17 g PO ONCE #238 grams 01/29/24 01/30/24 gram/dose oral powder peg 3350-electrolytes 236 240 ml PO Q10M #4,000 mL 03/19/24 gram-22.74 gram-6.74 gram-5.86 gram solution (Golytely) Previous Rx's ?Medication ?Instructions ?Recorded bisacodyl 5 mg tablet,delayed 5 mg PO ONCE #4 tabs 01/29/24 release (Dulcolax (bisacodyl)) polyethylene glycol 3350 17 17 g PO ONCE #238 grams 01/29/24 gram/dose oral powder peg 3350-electrolytes 236 240 ml PO Q10M #4,000 mL 03/19/24 gram-22.74 gram-6.74 gram-5.86 gram solution (Golytely) Allergies Allergy/AdvReac Type Severity Reaction Status Date / Time No Known Allergies Allergy Unverified 03/17/24 13:35 General Stated Complaint: [facility]Medical ETGAN: 3 Exam Narrative Exam Narrative: Review of Systems: All systems reviewed & are unremarkable except as noted in HPI and below Well-developed, ill-appearing NCAT PERRL, normal conjunctiva RRR no murmur Unlabored respiratory effort clear bilaterally Nondistended abdomen soft nontender Skin breakdown noted in buttocks area Blood pressure improved Course Vital Signs Vital signs: Vital Signs Temperature 36.8 C 05/24/24 17:35 Pulse 76 05/24/24 17:35 Respiratory Rate 18 05/24/24 17:35 Pulse Oximetry 90 L 05/24/24 17:35 Temperature 36.8 C 05/24/24 17:35 Temperature Source Oral 05/24/24 17:35 Pulse 76 05/24/24 17:35 Respiratory Rate 18 05/24/24 17:40 Respiratory Effort Normal, Non-Labored 05/24/24 17:40 Respiratory Depth Normal 05/24/24 17:40 Respiratory Pattern Normal 05/24/24 17:40 Blood Pressure Position Supine 05/24/24 17:35 Pulse Oximetry 91 L 05/24/24 17:40 Oxygen Delivery Method Room Air 08/19/24 17:40 Oxygen Flow Rate 0 05/24/24 17:35 Lab/Test Results Lab/Test Results: 05/24/24 18:39 Blood Blood Culture - Pending 05/24/24 18:28 Blood Blood Culture - Pending Laboratory Tests Range/Units 05/24/24 05/24/24 05/24/24 18:28 18:28 18:28 WBC (4.4-10.8) 10^3/uL 12.46 H RBC (4.36-5.78) 10^6/uL 4.42 Hgb (13.5-17.5) g/dL 12.9 L Hct (40.0-50.0) % 38.2 L MCV (80-95) fL 86 MCH (27.0-33.0) pg 29.2 MCHC (32.0-36.0) % 33.8 RDW (11.8-14.1) % 13.0 Plt Count (130-400) 10^3/uL 162 MPV (8.0-11.0) fL 9.0 Immature Gran % % 0.8 Neutrophils % % 84.5 Lymphocytes % % 5.4 Monocytes % % 8.8 Eosinophils % % 0.2 Basophils % % 0.3 Nucleated RBC % (0.0-0.3) % 0.0 Absolute Neutrophils (1.2-6.7) 10^3/uL 10.53 H Absolute Lymphocytes (1.2-3.4) 10^3/uL 0.67 L Absolute Monocytes (0.1-0.8) 10^3/uL 1.10 H Absolute Eosinophils (0.0-0.7) 10^3/uL 0.02 Absolute Basophils (0.0-0.2) 10^3/uL 0.04 VBG Lactate Cancelled Cancelled 1.7 Sodium (136-145) mmol/L 136 Potassium (3.5-5.1) mmol/L 4.0 Chloride (98-107) mmol/L 105 Carbon Dioxide (21.0-32.0) mmol/L 21.5 Anion Gap (3-11) mmol/L 9.5 BUN (7-18) mg/dL 29 H Creatinine (0.70-1.30) mg/dL 1.8 H Est GFR (CKD-EPI 2020) (mL/min/1.73m2) 41.51 Glucose (74-106) mg/dL 188 H Calcium (8.5-10.1) mg/dL 9.1 Magnesium (1.8-2.4) mg/dL 2.2 Total Bilirubin (0.2-1.0) mg/dL 0.77 AST (15-37) U/L 17 ALT (16-63) U/L 14 L Alkaline Phosphatase (46-116) U/L 91 Troponin I (< or =60) ng/L < 50 NT-Pro-B Natriuret Pep (<300) pg/mL 590 H Total Protein (6.4-8.2) g/dL 6.4 Albumin (3.4-5.0) g/dL 2.4 L Procalcitonin ng/mL 3.0 Urine Color (Yellow) Urine Clarity (Clear) Urine pH (5-8) Ur Specific [place] (1.005-1.025) Urine Protein (Neg-Trace) mg/dL Urine Ketones (Negative) mg/dL Urine Blood (Negative) Urine Nitrite (Negative) Urine Bilirubin (Negative) Urine Urobilinogen (Up to 0.2) mg/dL Ur Leukocyte Esterase (Negative) Urine RBC (0-2) HPF Urine WBC (0-5) HPF Ur Epithelial Cells (Negative) HPF Urine Crystals (Negative) HPF Urine Bacteria (Negative) HPF Urine Mucus (Negative) Urine Other (Negative) Ur Culture Indicated? Urine Glucose (Negative) mg/dL Range/Units 05/24/24 18:54 WBC (4.4-10.8) 10^3/uL RBC (4.36-5.78) 10^6/uL Hgb (13.5-17.5) g/dL Hct (40.0-50.0) % MCV (80-95) fL MCH (27.0-33.0) pg MCHC (32.0-36.0) % RDW (11.8-14.1) % Plt Count (130-400) 10^3/uL MPV (8.0-11.0) fL Immature Gran % % Neutrophils % % Lymphocytes % % Monocytes % % Eosinophils % % Basophils % % Nucleated RBC % (0.0-0.3) % Absolute Neutrophils (1.2-6.7) 10^3/uL Absolute Lymphocytes (1.2-3.4) 10^3/uL Absolute Monocytes (0.1-0.8) 10^3/uL Absolute Eosinophils (0.0-0.7) 10^3/uL Absolute Basophils (0.0-0.2) 10^3/uL VBG Lactate Sodium (136-145) mmol/L Potassium (3.5-5.1) mmol/L Chloride (98-107) mmol/L Carbon Dioxide (21.0-32.0) mmol/L Anion Gap (3-11) mmol/L BUN (7-18) mg/dL Creatinine (0.70-1.30) mg/dL Est GFR (CKD-EPI 2020) (mL/min/1.73m2) Glucose (74-106) mg/dL Calcium (8.5-10.1) mg/dL Magnesium (1.8-2.4) mg/dL Total Bilirubin (0.2-1.0) mg/dL AST (15-37) U/L ALT (16-63) U/L Alkaline Phosphatase (46-116) U/L Troponin I (< or =60) ng/L NT-Pro-B Natriuret Pep (<300) pg/mL Total Protein (6.4-8.2) g/dL Albumin (3.4-5.0) g/dL Procalcitonin ng/mL Urine Color (Yellow) Dark Yellow Urine Clarity (Clear) Clear Urine pH (5-8) 6.0 Ur Specific [place] (1.005-1.025) 1.025 Urine Protein (Neg-Trace) mg/dL 100 H Urine Ketones (Negative) mg/dL Trace H Urine Blood (Negative) Negative Urine Nitrite (Negative) Negative Urine Bilirubin (Negative) Small H Urine Urobilinogen (Up to 0.2) mg/dL 1.0 H Ur Leukocyte Esterase (Negative) Negative Urine RBC (0-2) HPF Negative Urine WBC (0-5) HPF 3-5 Ur Epithelial Cells (Negative) HPF Moderate Urine Crystals (Negative) HPF Negative Urine Bacteria (Negative) HPF Negative Urine Mucus (Negative) Moderate Urine Other (Negative) Rare Renal Ur Culture Indicated? No Urine Glucose (Negative) mg/dL Negative Medical Decision Making Emergent evaluation of vasovagal episode and diarrhea. Patient was noted to be hypotensive and bradycardic on the toilet while having large bowel movement. Was resuscitated with IV fluids and route by EMS and this is improved his mental status as well as his vital signs. Patient is having profuse diarrhea and has had multiple episodes since arrival. He has a benign abdominal exam, no fever. No recent antibiotic use. No history of colitis or inflammatory bowel disease. Initial differential includes viral illness, electrolyte derangement, dehydration Rectal tube was placed due to the profuse diarrhea. Lab work was obtained. White blood cell count is 12 with a shift. Given the vital sign abnormalities and concern for abdominal etiology, cultures and broad-spectrum antibiotics were initiated lactic acid at the upper limit of normal at 1.7. And his procalcitonin is 3 furthering my suspicion for sepsis. Creatinine is 1.8 which I suspect is slightly above the patient's baseline. Urinalysis did not reveal any sign of infection. Stool studies have been sent as well. A CT scan was obtained and this revealed diffuse colitis. Given his ongoing symptoms and need for resuscitative support, I feel the patient needs to be admitted to the hospital and I have discussed with the hospitalist who will admit for further management. Medical Records Medical records reviewed: Yes I reviewed the patient's medical records. Lab Data Lab results reviewed: Yes I reviewed the patient's lab results. Quality:SDOH Health Related Social Needs: No Data to Display PFSH All Active Problems Colitis (Acute) Post-traumatic stress disorder, chronic (Acute) Parkinson's disease with dyskinesia without fluctuating manifestations (Acute) Obesity (Chronic) Major depressive disorder, recurrent (Acute) Insomnia (Acute) Homonymous hemianopsia (Acute) Generalized anxiety disorder (Acute) Esophageal reflux (Chronic) Medical History TBI (traumatic brain injury) HTN (hypertension) Hypercholesterolemia Diabetes mellitus Surgical History S/P appy Social History Smoking/Tobacco Use Status: Never Smoking risk assessment performed?: Yes Alcohol Intake: never Drug use: Never Substance use type: does not use Housing: house Do you feel safe at home: Yes Do you feel safe in your relationship?: Yes
[2024-05-24 21:47] VITALS: BP 112/56; PULSE 77; RESP 16; O2SAT 97
[2024-05-24] MEDS: VANCOMYCIN 1,500 MG in Normal Saline 250 ML 166.6666 MG IVPB (21:49)
[2024-05-24 21:56] VITALS: BP 112/56; PULSE 78; RESP 19; TEMP 36.7; O2SAT 96
--- NOTE | 2024-05-24 22:09 | HPE_ITS ---
Date of service: 05/24/24 Time of Service: 22:10 [facility] All Active Problems Colitis (Acute) Post-traumatic stress disorder, chronic (Acute) Parkinson's disease with dyskinesia without fluctuating manifestations (Acute) Obesity (Chronic) Major depressive disorder, recurrent (Acute) Insomnia (Acute) Homonymous hemianopsia (Acute) Generalized anxiety disorder (Acute) Esophageal reflux (Chronic) Medical History TBI (traumatic brain injury) HTN (hypertension) Hypercholesterolemia Diabetes mellitus Surgical History S/P appy Social History Smoking/Tobacco Use Status: Never Smoking risk assessment performed?: Yes Alcohol Intake: never Drug use: Never Substance use type: does not use Housing: house Do you feel safe at home: Yes Do you feel safe in your relationship?: Yes Meds Allergies and Home Medications Allergies Allergy/AdvReac Type Severity Reaction Status Date / Time No Known Allergies Allergy Unverified 03/17/24 13:35 Home Medications ?Medication ?Instructions ?Recorded ?Confirmed ?Type atorvastatin 20 mg tablet 20 mg PO DAILY 11/24/18 05/24/24 History fluticasone propionate 50 2 spray intranasal DAILY 11/24/18 05/24/24 History mcg/actuation nasal spray,suspension metoprolol tartrate 100 mg tablet 100 mg PO BID 11/24/18 05/24/24 History omeprazole 20 mg capsule,delayed 20 mg PO BID 11/24/18 05/24/24 History release aripiprazole 2 mg tablet 2 mg PO DAILY 05/28/23 05/24/24 History cetirizine 10 mg tablet 10 mg PO DAILY 05/28/23 05/24/24 History gabapentin 300 mg tablet 300 mg PO BID 05/28/23 05/24/24 History semaglutide 0.25 mg or 0.5 mg (2 0.25 mg subcut 4-8XD 05/28/23 05/24/24 History mg/1.5 mL) subcutaneous pen injector bupropion HCl 150 mg 24 hr tablet, 150 mg PO QAM 01/22/24 05/24/24 History extended release carboxymethylcellulose sodium 1 % 1 drp ophthalmic (eye) 4-6XD PRN 01/22/24 05/24/24 History eye drops (Artificial Tears (carboxymethylcellulose)) cholecalciferol (vitamin D3) 25 25 mcg PO DAILY 01/22/24 05/24/24 History mcg (1,000 unit) tablet lorazepam 1 mg tablet 1 mg PO DAILY PRN 01/22/24 05/24/24 History miconazole nitrate 2 % topical 1 applic topical DAILY 01/22/24 05/24/24 History cream (Antifungal (miconazole)) montelukast 10 mg tablet 10 mg PO DAILY 01/22/24 05/24/24 History nifedipine 60 mg tablet,extended 60 mg PO DAILY 01/22/24 05/24/24 History release bisacodyl 5 mg tablet,delayed 5 mg PO ONCE #4 tabs 01/29/24 05/24/24 Rx release (Dulcolax (bisacodyl)) polyethylene glycol 3350 17 17 g PO ONCE #238 grams 01/29/24 05/24/24 Rx gram/dose oral powder peg 3350-electrolytes 236 240 ml PO Q10M #4,000 mL 03/19/24 05/24/24 Rx gram-22.74 gram-6.74 gram-5.86 gram solution (Golytely) Results Labs 05/24/24 18:28 05/24/24 18:28 Labs: Laboratory Results - last 24 hr 05/24/24 05/24/24 05/24/24 18:28 18:28 18:28 WBC 12.46 H RBC 4.42 Hgb 12.9 L Hct 38.2 L MCV 86 MCH 29.2 MCHC 33.8 RDW 13.0 Plt Count 162 MPV 9.0 Immature Gran % 0.8 Neutrophils % 84.5 Lymphocytes % 5.4 Monocytes % 8.8 Eosinophils % 0.2 Basophils % 0.3 Nucleated RBC % 0.0 Absolute Neutrophils 10.53 H Absolute Lymphocytes 0.67 L Absolute Monocytes 1.10 H Absolute Eosinophils 0.02 Absolute Basophils 0.04 VBG Lactate Cancelled Cancelled 1.7 Sodium 136 Potassium 4.0 Chloride 105 Carbon Dioxide 21.5 Anion Gap 9.5 BUN 29 H Creatinine 1.8 H Est GFR (CKD-EPI 2020) 41.51 Glucose 188 H Calcium 9.1 Magnesium 2.2 Total Bilirubin 0.77 AST 17 ALT 14 L Alkaline Phosphatase 91 Troponin I < 50 NT-Pro-B Natriuret Pep 590 H Total Protein 6.4 Albumin 2.4 L Procalcitonin 3.0 Urine Color Urine Clarity Urine pH Ur Specific [place] Urine Protein Urine Ketones Urine Blood Urine Nitrite Urine Bilirubin Urine Urobilinogen Ur Leukocyte Esterase Urine RBC Urine WBC Ur Epithelial Cells Urine Crystals Urine Bacteria Urine Mucus Urine Other Ur Culture Indicated? Urine Glucose 05/24/24 18:54 WBC RBC Hgb Hct MCV MCH MCHC RDW Plt Count MPV Immature Gran % Neutrophils % Lymphocytes % Monocytes % Eosinophils % Basophils % Nucleated RBC % Absolute Neutrophils Absolute Lymphocytes Absolute Monocytes Absolute Eosinophils Absolute Basophils VBG Lactate Sodium Potassium Chloride Carbon Dioxide Anion Gap BUN Creatinine Est GFR (CKD-EPI 2020) Glucose Calcium Magnesium Total Bilirubin AST ALT Alkaline Phosphatase Troponin I NT-Pro-B Natriuret Pep Total Protein Albumin Procalcitonin Urine Color Dark Yellow Urine Clarity Clear Urine pH 6.0 Ur Specific [place] 1.025 Urine Protein 100 H Urine Ketones Trace H Urine Blood Negative Urine Nitrite Negative Urine Bilirubin Small H Urine Urobilinogen 1.0 H Ur Leukocyte Esterase Negative Urine RBC Negative Urine WBC 3-5 Ur Epithelial Cells Moderate Urine Crystals Negative Urine Bacteria Negative Urine Mucus Moderate Urine Other Rare Renal Ur Culture Indicated? No Urine Glucose Negative Last Vital Signs Temp 36.7 C 05/24/24 21:56 Pulse 78 05/24/24 21:56 Resp 19 05/24/24 21:56 BP 112/56 L 05/24/24 21:56 Pulse Ox 96 05/24/24 21:56
--- NOTE | 2024-05-24 22:10 | NUR.NOTE ---
Nursing Note: BIBA from home pt arrived soiled in urine and stool, the pt states that he wears a diaper due to urine dribbling and he only changes it once a day. The pts skin is red and coccyx is red and excoriated with areas of bleeding. the pt was not aware. the pt continued to have numerous large amounts of watery stool and a rectal tube was placed and a urinary cath, the urine is dark in color and only a small amount was produced. barrier cream applied to area. Pt received [id number] NS from EMS and ED combined. Pts VS remain WNL since IV fluid was given
--- NOTE | 2024-05-24 22:16 | HPE_ITS ---
Date of service: 05/24/24 Time of Service: 22:17 Assessment and Plan Assessment and plan (1) Diarrhea: Status: Acute Assessment and plan: Acute, non-specific diarrheal illness. No identified risk factors for C diff. Will await stool studies for both C diff and bacterial pathogens, while there is some clinical suggestion that the worst may be over. In meantime will in any case hold on further antibiotics pending results, provide general supportive care with IVF and monitoring of electrolytes. The syncopal episode was clearly vagal and does not require further work up -- except out of abundance of caution will maintain on telemetry overnight. DM: glucose 188, will monitor. Will be having patient on at most clear liquids for now. Only med is weekly Semaglutide, will hold. History of Present Illness History of Present Illness Chief Complaint: diarrhea, syncope Narrative: 63 male with DM, parkinson's -- had 1-2 days of nausea and vomiting, now resolved, but then today developed profuse and frequent watery diarrhea. No abdominal pain, no recent antibiotics, no similar illness at home. While moving his bowels had a syncopal episode, which he partially remembers, states he felt sweaty, daughter says he was pale, and EMS reported patient was hypotensive and bradycardic. received 1L IVF enroute. here in ER has received additional 1L IV F. Findings of note for stable VS currently, white count 12, normal electrolytes and CT showing diffuse colitis. A rectal tube has been placede (which currently is showing thin brown stool in small volumes) and patient given doses of of Zosyn and Vancomycin (IV). I was asked to evaluate for admission. Review of Systems Narrative: per HPI PFSH All Active Problems (Updated 05/24/24 @ 22:29 by Kevin Cruz MD) Diarrhea (Acute) Colitis (Acute) Post-traumatic stress disorder, chronic (Acute) Parkinson's disease with dyskinesia without fluctuating manifestations (Acute) Obesity (Chronic) Major depressive disorder, recurrent (Acute) Insomnia (Acute) Homonymous hemianopsia (Acute) Generalized anxiety disorder (Acute) Esophageal reflux (Chronic) Medical History (Updated 05/24/24 @ 22:29 by Kevin Cruz MD) TBI (traumatic brain injury) HTN (hypertension) Hypercholesterolemia Diabetes mellitus Surgical History S/P appy Social History Smoking/Tobacco Use Status: Never Smoking risk assessment performed?: Yes Alcohol Intake: never Drug use: Never Substance use type: does not use Housing: house Do you feel safe at home: Yes Do you feel safe in your relationship?: Yes Meds Allergies and Home Medications Allergies Allergy/AdvReac Type Severity Reaction Status Date / Time No Known Allergies Allergy Unverified 03/17/24 13:35 Home Medications ?Medication ?Instructions ?Recorded ?Confirmed ?Type atorvastatin 20 mg tablet 20 mg PO DAILY 11/24/18 05/24/24 History fluticasone propionate 50 2 spray intranasal DAILY 11/24/18 05/24/24 History mcg/actuation nasal spray,suspension metoprolol tartrate 100 mg tablet 100 mg PO BID 11/24/18 05/24/24 History omeprazole 20 mg capsule,delayed 20 mg PO BID 11/24/18 05/24/24 History release aripiprazole 2 mg tablet 2 mg PO DAILY 05/28/23 05/24/24 History cetirizine 10 mg tablet 10 mg PO DAILY 05/28/23 05/24/24 History gabapentin 300 mg tablet 300 mg PO BID 05/28/23 05/24/24 History semaglutide 0.25 mg or 0.5 mg (2 0.25 mg subcut 4-8XD 05/28/23 05/24/24 History mg/1.5 mL) subcutaneous pen injector bupropion HCl 150 mg 24 hr tablet, 150 mg PO QAM 01/22/24 05/24/24 History extended release carboxymethylcellulose sodium 1 % 1 drp ophthalmic (eye) 4-6XD PRN 01/22/24 05/24/24 History eye drops (Artificial Tears (carboxymethylcellulose)) cholecalciferol (vitamin D3) 25 25 mcg PO DAILY 01/22/24 05/24/24 History mcg (1,000 unit) tablet lorazepam 1 mg tablet 1 mg PO DAILY PRN 01/22/24 05/24/24 History miconazole nitrate 2 % topical 1 applic topical DAILY 01/22/24 05/24/24 History cream (Antifungal (miconazole)) montelukast 10 mg tablet 10 mg PO DAILY 04/18/24 08/19/24 History nifedipine 60 mg tablet,extended 60 mg PO DAILY 01/22/24 05/24/24 History release bisacodyl 5 mg tablet,delayed 5 mg PO ONCE #4 tabs 01/29/24 05/24/24 Rx release (Dulcolax (bisacodyl)) polyethylene glycol 3350 17 17 g PO ONCE #238 grams 01/29/24 05/24/24 Rx gram/dose oral powder peg 3350-electrolytes 236 240 ml PO Q10M #4,000 mL 03/19/24 05/24/24 Rx gram-22.74 gram-6.74 gram-5.86 gram solution (Golytely) Exam Narrative Exam Narrative: 112/56, 78, 36.7, 19, 96% RA. HEENT atraumatic, neck supple; lungs clear; heart RRR; abdomen hypoactive BS, soft and NT; extremities w/o edema; neuro Ox3, lucid, moves all 4s Results Labs 05/24/24 18:28 05/24/24 18:28 Labs: Laboratory Results - last 24 hr 05/24/24 05/24/24 05/24/24 18:28 18:28 18:28 WBC 12.46 H RBC 4.42 Hgb 12.9 L Hct 38.2 L MCV 86 MCH 29.2 MCHC 33.8 RDW 13.0 Plt Count 162 MPV 9.0 Immature Gran % 0.8 Neutrophils % 84.5 Lymphocytes % 5.4 Monocytes % 8.8 Eosinophils % 0.2 Basophils % 0.3 Nucleated RBC % 0.0 Absolute Neutrophils 10.53 H Absolute Lymphocytes 0.67 L Absolute Monocytes 1.10 H Absolute Eosinophils 0.02 Absolute Basophils 0.04 VBG Lactate Cancelled Cancelled 1.7 Sodium 136 Potassium 4.0 Chloride 105 Carbon Dioxide 21.5 Anion Gap 9.5 BUN 29 H Creatinine 1.8 H Est GFR (CKD-EPI 2020) 41.51 Glucose 188 H Calcium 9.1 Magnesium 2.2 Total Bilirubin 0.77 AST 17 ALT 14 L Alkaline Phosphatase 91 Troponin I < 50 NT-Pro-B Natriuret Pep 590 H Total Protein 6.4 Albumin 2.4 L Procalcitonin 3.0 Urine Color Urine Clarity Urine pH Ur Specific [place] Urine Protein Urine Ketones Urine Blood Urine Nitrite Urine Bilirubin Urine Urobilinogen Ur Leukocyte Esterase Urine RBC Urine WBC Ur Epithelial Cells Urine Crystals Urine Bacteria Urine Mucus Urine Other Ur Culture Indicated? Urine Glucose 05/24/24 18:54 WBC RBC Hgb Hct MCV MCH MCHC RDW Plt Count MPV Immature Gran % Neutrophils % Lymphocytes % Monocytes % Eosinophils % Basophils % Nucleated RBC % Absolute Neutrophils Absolute Lymphocytes Absolute Monocytes Absolute Eosinophils Absolute Basophils VBG Lactate Sodium Potassium Chloride Carbon Dioxide Anion Gap BUN Creatinine Est GFR (CKD-EPI 2020) Glucose Calcium Magnesium Total Bilirubin AST ALT Alkaline Phosphatase Troponin I NT-Pro-B Natriuret Pep Total Protein Albumin Procalcitonin Urine Color Dark Yellow Urine Clarity Clear Urine pH 6.0 Ur Specific [place] 1.025 Urine Protein 100 H Urine Ketones Trace H Urine Blood Negative Urine Nitrite Negative Urine Bilirubin Small H Urine Urobilinogen 1.0 H Ur Leukocyte Esterase Negative Urine RBC Negative Urine WBC 3-5 Ur Epithelial Cells Moderate Urine Crystals Negative Urine Bacteria Negative Urine Mucus Moderate Urine Other Rare Renal Ur Culture Indicated? No Urine Glucose Negative Last Vital Signs Temp 36.7 C 05/24/24 21:56 Pulse 78 05/24/24 21:56 Resp 19 05/24/24 21:56 BP 112/56 L 05/24/24 21:56 Pulse Ox 96 05/24/24 21:56 Time Spent Time spent with Patient: 40-54 minutes Time was spent: preparing to see the patient(eg.review tests), obtaining and/or reviewing separately otained hiistory, ordering medications,tests, procedures, referring, communicating with other health managed care specialist and indepentently interpreting results
[2024-05-24 22:27] LABS: C Diff PCR Negative (Negative)
[2024-05-24 22:32] VITALS: RESP 16; O2SAT 98
[2024-05-25] MEDS: Lactated Ringers 1,000 ML 125 ML IV ×2 (00:14→19:47)
[2024-05-25] MEDS: LORazepam 1 MG TAB PO (05:44)
[2024-05-25 05:58] LABS: Anion Gap 7.2 mmol/L (3-11); BUN 24 mg/dL (7-18); CO2 24.8 mmol/L (21.0-32.0); CREATININE 1.3 mg/dL (0.70-1.30); Calcium 8.9 mg/dL (8.5-10.1); Chloride 108 mmol/L (98-107); Estimated GFR 61.35 (mL/min/1.73m2); Glucose 141 mg/dL (74-106); Potassium 3.7 mmol/L (3.5-5.1); Sodium 140 mmol/L (136-145)
[2024-05-25 06:39] VITALS: BP 133/57; PULSE 80; RESP 16; TEMP 36.6; O2SAT 98
[2024-05-25] MEDS: Cholecalciferol (Vitamin D3) 1,000 UNIT TAB 1000 UNITS PO (09:30)
[2024-05-25] MEDS: Atorvastatin 20 MG TAB PO (09:30)
[2024-05-25] MEDS: Cetirizine 10 MG TAB PO (09:30)
[2024-05-25] MEDS: Gabapentin 300 MG CAP PO ×2 (09:30→19:33)
[2024-05-25] MEDS: ARIPiprazole 2 MG TAB PO (09:30)
[2024-05-25] MEDS: buPROPion-XL 150 MG TABCR PO (09:30)
[2024-05-25] MEDS: Montelukast 10 MG TAB PO (09:30)
[2024-05-25] MEDS: Omeprazole 20 MG CAPCR PO ×2 (09:30→19:33)
[2024-05-25] MEDS: Fluticasone NASAL SPRAY 16 GM BTL NS (09:30)
[2024-05-25] MEDS: NIFEdipine-CR 30 MG TABCR 60 MG PO (09:30)
[2024-05-25] MEDS: Metoprolol 50 MG TAB 100 MG PO ×2 (09:30→19:40)
--- NOTE | 2024-05-25 11:44 | INITIAL_ITS ---
Date of service: 05/25/24 Time of Service: 11:44 Care Management Initial Assmt Initial Assessment Reason for Hospitalization: Diarrhea Functional Status/Living Situation Patient Presentation: Fortunato is currently boarding in the ER, pending admission to [facility] for colitis. He is awake, lying in bed, looking at a lunch menu and easily engages in conversation. Fortunato reports that he's been having frequent diarrhea and is not feeling well. Per pt, he lives with his friend Shanna and she is his primary support person. He is a retired , is disabled and Shanna helps him with his ADL's. He has no local family. Town of Residence: [facility] Resides with: Other (Friend Shanna, like a daughter. ) Significant Other/Family: Out of area Caregiver/Guardian: Shanna supports patient with his ADL's, cooks and providers transportation Employment Status: Disabled Instrumental Activities of Daily Living (ADLs): Requires support Medications Medication Management: No Issues/Barriers identified Physical Functioning/Mobility Assistive Device: Goes between a cane and walker. Advance Directives Advance Directives: Do you have an Advance Directive: N 11/02/13 10:22 AD On File at [facility]: N 11/02/13 10:22 Date Asked 05/24/24 05/24/24 18:43 AD Date Reviewed COLST On File at [facility] COLST Date Scanned Code Status Resuscitation Status Full Code Portal Pt does not currently have a portal and education provided: Yes Insurance Coverage/Financial Issues Insurance: [place] Financial Issues: None identified Care Team Visit Care Team Role Provider Type Jake León Primary Care Provider NON-[facility] STAFF PHYSICIAN Dakota Raphael MD Emergency Provider [facility] STAFF PHYSICIAN Kevin Cruz MD Admit Provider [facility] STAFF PHYSICIAN Attending Provider Discharge Anticipated Barriers to Discharge: Medical Status Patient/Family Education Needs: Review discharge instructions, discuss Ask Me Three Plan: Fortunato is currently boarding in the ER and waiting to transfer to the [facility] unit. CM will follow and support discharge planning considerations when known. PFSH All Active Problems (Updated 05/24/24 @ 22:29 by Kevin Cruz MD) Diarrhea (Acute) Colitis (Acute) Post-traumatic stress disorder, chronic (Acute) Parkinson's disease with dyskinesia without fluctuating manifestations (Acute) Obesity (Chronic) Major depressive disorder, recurrent (Acute) Insomnia (Acute) Homonymous hemianopsia (Acute) Generalized anxiety disorder (Acute) Esophageal reflux (Chronic) Medical History (Updated 05/24/24 @ 22:29 by Kevin Cruz MD) TBI (traumatic brain injury) HTN (hypertension) Hypercholesterolemia Diabetes mellitus Surgical History S/P appy Social History Smoking/Tobacco Use Status: Never Smoking risk assessment performed?: Yes Alcohol Intake: never Drug use: Never Substance use type: does not use Housing: house Do you feel safe at home: Yes Do you feel safe in your relationship?: Yes SDOH(Care Management) Screening Will the Patient Participate in the Screening?: Declined to provide
[2024-05-25 16:50] LABS: Abs Immature Grans 0.03 10^3/uL (0.0-0.06); Absolute Basophil Count 0.03 10^3/uL (0.0-0.2); Absolute Eosinophil Count 0.17 10^3/uL (0.0-0.7); Absolute Lymphocyte Count 1.07 10^3/uL (1.2-3.4); Absolute Monocyte Count 0.81 10^3/uL (0.1-0.8); Absolute Neutrophil Count 5.07 10^3/uL (1.2-6.7); Basophils % 0.4 %; Eosinophils % 2.4 %; HCT 34.5 % (40.0-50.0); HGB 11.8 g/dL (13.5-17.5); Immature Grans % 0.4 %; Lymphocytes % 14.9 %; MCH 29.3 pg (27.0-33.0); MCHC 34.2 % (32.0-36.0); MCV 86 fL (80-95); MPV 8.9 fL (8.0-11.0); Monocytes % 11.3 %; Neutrophils % 70.6 %; Platelet Count 158 10^3/uL (130-400); RBC 4.03 10^6/uL (4.36-5.78); RDW 13.1 % (11.8-14.1); RDW-SD 40.3 fL; WBC 7.18 10^3/uL (4.4-10.8)
[2024-05-25 17:08] LABS: ALT 20 U/L (16-63); AST 17 U/L (15-37); Albumin 2.1 g/dL (3.4-5.0); Alkaline Phosphatase 83 U/L (46-116); Anion Gap 8.3 mmol/L (3-11); BUN 21 mg/dL (7-18); Bilirubin, Total 0.37 mg/dL (0.2-1.0); CO2 23.7 mmol/L (21.0-32.0); Calcium 8.9 mg/dL (8.5-10.1); Chloride 108 mmol/L (98-107); Estimated GFR 84.05 (mL/min/1.73m2); Glucose 135 mg/dL (74-106); Magnesium 1.7 mg/dL (1.8-2.4); Potassium 3.7 mmol/L (3.5-5.1); Sodium 140 mmol/L (136-145)
[2024-05-25] MEDS: MAGNESIUM SULFATE 1 GM/100 ML BAG IVINF (17:25)
[2024-05-25 17:39] VITALS: BP 133/57; PULSE 80; RESP 16; TEMP 36.6; O2SAT 98
--- NOTE | 2024-05-25 17:45 | W.PC.ACHO ---
Registration Status: Primary Language: Preferred Language: ED Information & Data Chief Complaint GenMedical 05/24/24 21:49 Triage Note Pt started vomiting on 05/24/24 17:35 Friday. Today Pt passed out in front of his tenants. Got himself up and walked to a commode. While on the commode Pt went unresponsive with no palpable pulses. Monitor applied and Pt was noted to have a HR in the 40 's, BP 61/46. Pt took a large BM and started coming around. New rash also noted on left lower leg. Pt's HR and BP increased. Pt had 1.5 liters of fluid Medical / Surgical History (Last Reviewed 05/24/24 @ 22:27 by Kevin Cruz MD) TBI (traumatic brain injury) HTN (hypertension) Hypercholesterolemia Diabetes mellitus (Last Reviewed 05/24/24 @ 22:27 by Kevin Cruz MD) S/P appy Most Recent Vital Signs Temperature 36.6 C 05/25/24 17:39 Temperature Source Temporal Artery Scan 05/25/24 06:39 Pulse 80 05/25/24 17:39 Respiratory Rate 16 05/25/24 17:39 Respiratory Effort Normal 05/24/24 22:32 Respiratory Depth Normal 05/24/24 22:32 Respiratory Pattern Normal 05/24/24 22:32 Blood Pressure 133/57 L 05/25/24 17:39 Blood Pressure Position Supine 05/24/24 17:35 Pulse Oximetry 98 05/25/24 17:39 Oxygen Delivery Method Room Air 05/25/24 06:39 Oxygen Flow Rate 0 05/25/24 06:39 Pain Level 1 05/25/24 17:39 Allergies No Known Allergies Allergy (Verified 05/24/24 22:56) Precautions Isolation Standard precaution 05/24/24 17:40 Active Medications Generic Name Dose Route Start Last Admin Trade Name Freq PRN Reason Stop Dose Admin Aripiprazole 2 mg 05/25/24 08:30 05/25/24 09:30 Aripiprazole 2 Mg Tab PO 2 mg DAILY MABEL Administration Atorvastatin Calcium 20 mg 05/25/24 08:30 05/25/24 09:30 Atorvastatin 20 Mg Tab PO 20 mg DAILY MABEL Administration Bupropion HCl 150 mg 05/25/24 08:30 05/25/24 09:30 Bupropion-Xl 150 Mg Tabcr PO 150 mg QAM MABEL Administration Cetirizine HCl 10 mg 05/25/24 08:30 05/25/24 09:30 Cetirizine 10 Mg Tab PO 10 mg DAILY MABEL Administration Cholecalciferol 1,000 units 05/25/24 08:30 05/25/24 09:30 Cholecalciferol (Vitamin D3) 1,000 Unit Tab PO 1,000 units DAILY MABEL Administration Fluticasone Propionate 0 gm 05/25/24 08:30 05/25/24 09:30 Fluticasone Nasal [place] 16 Gm Btl NS 2 puffs DAILY MABEL Administration Gabapentin 300 mg 05/25/24 08:30 05/25/24 09:30 Gabapentin 300 Mg Cap PO 300 mg BID MABEL Administration Ringer's Solution 1,000 mls @ 125 mls/hr 05/24/24 22:45 05/25/24 08:17 IV Infused INFUSION MABEL Infusion Magnesium Sulfate/Dextrose 1 gm in 100 mls @ 100 mls/hr 05/25/24 17:09 05/25/24 17:25 IVINF 05/25/24 18:08 100 mls/hr NOW ONE Administration Metoprolol Tartrate 100 mg 05/25/24 08:30 05/25/24 09:30 Metoprolol 50 Mg Tab PO 100 mg BID MABEL Administration Montelukast Sodium 10 mg 05/25/24 08:30 05/25/24 09:30 Montelukast 10 Mg Tab PO 10 mg DAILY MABEL Administration Nifedipine 60 mg 05/25/24 08:30 05/25/24 09:30 Nifedipine-Cr 30 Mg Tabcr PO 60 mg DAILY MABEL Administration Omeprazole 20 mg 05/25/24 08:30 05/25/24 09:30 Omeprazole 20 Mg Capcr PO 20 mg BID@0730,2000 MABEL Administration IV IV Catheter Type [Right Peripheral IV Antecubital] IV Catheter Type [Left Peripheral IV Antecubital] IV Catheter Gauge [Right 16 Antecubital] IV Catheter Gauge [Left 20 Antecubital] Diagnostics 05/25/24 05/25/24 05/25/24 Range/Units 16:42 05:40 04:02 WBC 7.18 (4.4-10.8) 10^3/uL RBC 4.03 L (4.36-5.78) 10^6/uL Hgb 11.8 L (13.5-17.5) g/dL Hct 34.5 L (40.0-50.0) % MCV 86 (80-95) fL MCH 29.3 (27.0-33.0) pg MCHC 34.2 (32.0-36.0) % RDW 13.1 (11.8-14.1) % Plt Count 158 (130-400) 10^3/uL MPV 8.9 (8.0-11.0) fL Immature Gran % 0.4 % Neutrophils % 70.6 % Lymphocytes % 14.9 % Monocytes % 11.3 % Eosinophils % 2.4 % Basophils % 0.4 % Nucleated RBC % 0.0 (0.0-0.3) % Absolute Neutrophils 5.07 (1.2-6.7) 10^3/uL Absolute Lymphocytes 1.07 L (1.2-3.4) 10^3/uL Absolute Monocytes 0.81 H (0.1-0.8) 10^3/uL Absolute Eosinophils 0.17 (0.0-0.7) 10^3/uL Absolute Basophils 0.03 (0.0-0.2) 10^3/uL VBG Lactate Sodium 140 140 (136-145) mmol/L Potassium 3.7 3.7 (3.5-5.1) mmol/L Chloride 108 H 108 H (98-107) mmol/L Carbon Dioxide 23.7 24.8 (21.0-32.0) mmol/L Anion Gap 8.3 7.2 (3-11) mmol/L BUN 21 H 24 H (7-18) mg/dL Creatinine 1.0 1.3 (0.70-1.30) mg/dL Est GFR (CKD-EPI 2020) 84.05 61.35 (mL/min/1.73m2) Glucose 135 H 141 H (74-106) mg/dL Calcium 8.9 8.9 (8.5-10.1) mg/dL Magnesium 1.7 L (1.8-2.4) mg/dL Total Bilirubin 0.37 (0.2-1.0) mg/dL AST 17 (15-37) U/L ALT 20 (16-63) U/L Alkaline Phosphatase 83 (46-116) U/L Troponin I (< or =60) ng/L NT-Pro-B Natriuret Pep (<300) pg/mL Total Protein 6.0 L (6.4-8.2) g/dL Albumin 2.1 L (3.4-5.0) g/dL Procalcitonin ng/mL Urine Color (Yellow) Urine Clarity (Clear) Urine pH (5-8) Ur Specific [place] (1.005-1.025) Urine Protein (Neg-Trace) mg/dL Urine Ketones (Negative) mg/dL Urine Blood (Negative) Urine Nitrite (Negative) Urine Bilirubin (Negative) Urine Urobilinogen (Up to 0.2) mg/dL Ur Leukocyte Esterase (Negative) Urine RBC (0-2) HPF Urine WBC (0-5) HPF Ur Epithelial Cells (Negative) HPF Urine Crystals (Negative) HPF Urine Bacteria (Negative) HPF Urine Mucus (Negative) Urine Other (Negative) Ur Culture Indicated? Urine Glucose (Negative) mg/dL Stool Campylobacter PCR Pending Stl C.difficile Tox PCR (Negative) Stool Salmonella PCR Pending Stool Shigella PCR Pending Shiga Toxin (PCR) Pending 05/24/24 05/24/24 05/24/24 Range/Units 21:02 18:54 18:28 WBC (4.4-10.8) 10^3/uL RBC (4.36-5.78) 10^6/uL Hgb (13.5-17.5) g/dL Hct (40.0-50.0) % MCV (80-95) fL MCH (27.0-33.0) pg MCHC (32.0-36.0) % RDW (11.8-14.1) % Plt Count (130-400) 10^3/uL MPV (8.0-11.0) fL Immature Gran % % Neutrophils % % Lymphocytes % % Monocytes % % Eosinophils % % Basophils % % Nucleated RBC % (0.0-0.3) % Absolute Neutrophils (1.2-6.7) 10^3/uL Absolute Lymphocytes (1.2-3.4) 10^3/uL Absolute Monocytes (0.1-0.8) 10^3/uL Absolute Eosinophils (0.0-0.7) 10^3/uL Absolute Basophils (0.0-0.2) 10^3/uL VBG Lactate 1.7 Sodium 136 (136-145) mmol/L Potassium 4.0 (3.5-5.1) mmol/L Chloride 105 (98-107) mmol/L Carbon Dioxide 21.5 (21.0-32.0) mmol/L Anion Gap 9.5 (3-11) mmol/L BUN 29 H (7-18) mg/dL Creatinine 1.8 H (0.70-1.30) mg/dL Est GFR (CKD-EPI 2020) 41.51 (mL/min/1.73m2) Glucose 188 H (74-106) mg/dL Calcium 9.1 (8.5-10.1) mg/dL Magnesium 2.2 (1.8-2.4) mg/dL Total Bilirubin 0.77 (0.2-1.0) mg/dL AST 17 (15-37) U/L ALT 14 L (16-63) U/L Alkaline Phosphatase 91 (46-116) U/L Troponin I < 50 (< or =60) ng/L NT-Pro-B Natriuret Pep 590 H (<300) pg/mL Total Protein 6.4 (6.4-8.2) g/dL Albumin 2.4 L (3.4-5.0) g/dL Procalcitonin 3.0 ng/mL Urine Color Dark Yellow (Yellow) Urine Clarity Clear (Clear) Urine pH 6.0 (5-8) Ur Specific [place] 1.025 (1.005-1.025) Urine Protein 100 H (Neg-Trace) mg/dL Urine Ketones Trace H (Negative) mg/dL Urine Blood Negative (Negative) Urine Nitrite Negative (Negative) Urine Bilirubin Small H (Negative) Urine Urobilinogen 1.0 H (Up to 0.2) mg/dL Ur Leukocyte Esterase Negative (Negative) Urine RBC Negative (0-2) HPF Urine WBC 3-5 (0-5) HPF Ur Epithelial Cells Moderate (Negative) HPF Urine Crystals Negative (Negative) HPF Urine Bacteria Negative (Negative) HPF Urine Mucus Moderate (Negative) Urine Other Rare Renal (Negative) Ur Culture Indicated? No Urine Glucose Negative (Negative) mg/dL Stool Campylobacter PCR Stl C.difficile Tox PCR Negative (Negative) Stool Salmonella PCR Stool Shigella PCR Shiga Toxin (PCR) 05/24/24 05/24/24 Range/Units 18:28 18:28 WBC 12.46 H (4.4-10.8) 10^3/uL RBC 4.42 (4.36-5.78) 10^6/uL Hgb 12.9 L (13.5-17.5) g/dL Hct 38.2 L (40.0-50.0) % MCV 86 (80-95) fL MCH 29.2 (27.0-33.0) pg MCHC 33.8 (32.0-36.0) % RDW 13.0 (11.8-14.1) % Plt Count 162 (130-400) 10^3/uL MPV 9.0 (8.0-11.0) fL Immature Gran % 0.8 % Neutrophils % 84.5 % Lymphocytes % 5.4 % Monocytes % 8.8 % Eosinophils % 0.2 % Basophils % 0.3 % Nucleated RBC % 0.0 (0.0-0.3) % Absolute Neutrophils 10.53 H (1.2-6.7) 10^3/uL Absolute Lymphocytes 0.67 L (1.2-3.4) 10^3/uL Absolute Monocytes 1.10 H (0.1-0.8) 10^3/uL Absolute Eosinophils 0.02 (0.0-0.7) 10^3/uL Absolute Basophils 0.04 (0.0-0.2) 10^3/uL VBG Lactate Cancelled Cancelled Sodium (136-145) mmol/L Potassium (3.5-5.1) mmol/L Chloride (98-107) mmol/L Carbon Dioxide (21.0-32.0) mmol/L Anion Gap (3-11) mmol/L BUN (7-18) mg/dL Creatinine (0.70-1.30) mg/dL Est GFR (CKD-EPI 2020) (mL/min/1.73m2) Glucose (74-106) mg/dL Calcium (8.5-10.1) mg/dL Magnesium (1.8-2.4) mg/dL Total Bilirubin (0.2-1.0) mg/dL AST (15-37) U/L ALT (16-63) U/L Alkaline Phosphatase (46-116) U/L Troponin I (< or =60) ng/L NT-Pro-B Natriuret Pep (<300) pg/mL Total Protein (6.4-8.2) g/dL Albumin (3.4-5.0) g/dL Procalcitonin ng/mL Urine Color (Yellow) Urine Clarity (Clear) Urine pH (5-8) Ur Specific [place] (1.005-1.025) Urine Protein (Neg-Trace) mg/dL Urine Ketones (Negative) mg/dL Urine Blood (Negative) Urine Nitrite (Negative) Urine Bilirubin (Negative) Urine Urobilinogen (Up to 0.2) mg/dL Ur Leukocyte Esterase (Negative) Urine RBC (0-2) HPF Urine WBC (0-5) HPF Ur Epithelial Cells (Negative) HPF Urine Crystals (Negative) HPF Urine Bacteria (Negative) HPF Urine Mucus (Negative) Urine Other (Negative) Ur Culture Indicated? Urine Glucose (Negative) mg/dL Stool Campylobacter PCR Stl C.difficile Tox PCR (Negative) Stool Salmonella PCR Stool Shigella PCR Shiga Toxin (PCR) 05/24/24 18:39 Blood Culture - Pending Blood 05/24/24 18:28 Blood Culture - Pending Blood Intake and Output - 24 Hour Total 05/24/24 17:26 thru 05/25/24 14:34 Intake Total 2600 Output Total 1040 Balance 1560 Weight 88.904 kg Intake: IV 2350 Oral 250 Output: Urine 1000 Stool 40 Falls Risk Assessment History of Falls No History 05/24/24 17:40 Fall Total Score 0 05/24/24 17:40 Level of Risk Standard/Low Risk 05/24/24 17:40 Problems (Last Reviewed 05/24/24 @ 22:27 by Kevin Cruz MD) Diarrhea (Acute) Colitis (Acute) Notes 05/24/24 22:10 Nursing Notes by Christiano Soni Nursing Note: BIBA from home pt arrived soiled in urine and stool, the pt states that he wears a diaper due to urine dribbling and he only changes it once a day. The pts skin is red and coccyx is red and excoriated with areas of bleeding. the pt was not aware. the pt continued to have numerous large amounts of watery stool and a rectal tube was placed and a urinary cath, the urine is dark in color and only a small amount was produced. barrier cream applied to area. Pt received [id number] NS from EMS and ED combined. Pts VS remain WNL since IV fluid was given Initialized on 05/24/24 22:10 - END OF NOTE v v v v v v v v v Sending and/or Receiving Nurses: Please use comment section below to note any information pertinent to the patient hand-off not included above. Information / Comments: Report received from: Clementine
[2024-05-25 18:03] VITALS: BP 150/77; PULSE 85; RESP 20; TEMP 37.6; O2SAT 98
--- NOTE | 2024-05-25 18:38 | W.PM.PROGNOT ---
Date of Service Date of service: 05/25/24 Time of Service: 18:38 Assessment and Plan Assessment and plan (1) Diarrhea: Status: Acute Assessment and plan: Acute, non-specific diarrheal illness. No identified risk factors for C diff. CDiff negative, and bacterial pathogens still pending, Continue to hold antibiotics pending results, provide general supportive care with IVF and monitoring of electrolytes. Flextube continued from ED imodium MIVF Clears. (2) Syncope: Status: Chronic Assessment and plan: No further bradycardia or hypotension Continue tele and monitor vs (3) Parkinson's disease with dyskinesia without fluctuating manifestations: Status: Chronic (4) Stage II decubitus ulcer: Status: Acute Assessment and plan: Wound consult Mepalex Flex tube Turn frequently (5) Insomnia: Status: Acute Assessment and plan: Offer melatonin a HS Subjective Subjective Patient reports: no new complaints, feels better, tolerating liquids well, voiding w/o difficulty, diarrhea and afebrile; denies flatus, blood in stool, nausea, vomiting or shortness of breath Exam Narrative Exam Narrative: Reviewed nurses notes and vs Review of Systems: All systems reviewed & are unremarkable except as noted in HPI and below Well-developed, ill-appearing NCAT PERRL, normal conjunctiva RRR no murmur Unlabored respiratory effort clear bilaterally Nondistended abdomen soft nontender Skin breakdown noted in buttocks area Objective Last Vital Signs Temp 37.6 C H 05/25/24 18:03 Pulse 85 05/25/24 18:03 Resp 20 05/25/24 18:03 BP 150/77 H 05/25/24 18:03 Pulse Ox 98 05/25/24 18:03 Laboratory Results - last 24 hr 05/24/24 05/24/24 05/24/24 18:28 18:28 18:28 WBC RBC Hgb Hct MCV MCH MCHC RDW Plt Count MPV Immature Gran % Neutrophils % Lymphocytes % Monocytes % Eosinophils % Basophils % Nucleated RBC % Absolute Neutrophils Absolute Lymphocytes Absolute Monocytes Absolute Eosinophils Absolute Basophils VBG Lactate Cancelled Cancelled 1.7 Sodium 136 Potassium 4.0 Chloride 105 Carbon Dioxide 21.5 Anion Gap 9.5 BUN 29 H Creatinine 1.8 H Est GFR (CKD-EPI 2020) 41.51 Glucose 188 H Calcium 9.1 Magnesium 2.2 Total Bilirubin 0.77 AST 17 ALT 14 L Alkaline Phosphatase 91 Troponin I < 50 NT-Pro-B Natriuret Pep 590 H Total Protein 6.4 Albumin 2.4 L Procalcitonin 3.0 Urine Color Urine Clarity Urine pH Ur Specific [place] Urine Protein Urine Ketones Urine Blood Urine Nitrite Urine Bilirubin Urine Urobilinogen Ur Leukocyte Esterase Urine RBC Urine WBC Ur Epithelial Cells Urine Crystals Urine Bacteria Urine Mucus Urine Other Ur Culture Indicated? Urine Glucose Stl C.difficile Tox PCR 05/24/24 05/24/24 05/25/24 18:54 21:02 05:40 WBC RBC Hgb Hct MCV MCH MCHC RDW Plt Count MPV Immature Gran % Neutrophils % Lymphocytes % Monocytes % Eosinophils % Basophils % Nucleated RBC % Absolute Neutrophils Absolute Lymphocytes Absolute Monocytes Absolute Eosinophils Absolute Basophils VBG Lactate Sodium 140 Potassium 3.7 Chloride 108 H Carbon Dioxide 24.8 Anion Gap 7.2 BUN 24 H Creatinine 1.3 Est GFR (CKD-EPI 2020) 61.35 Glucose 141 H Calcium 8.9 Magnesium Total Bilirubin AST ALT Alkaline Phosphatase Troponin I NT-Pro-B Natriuret Pep Total Protein Albumin Procalcitonin Urine Color Dark Yellow Urine Clarity Clear Urine pH 6.0 Ur Specific [place] 1.025 Urine Protein 100 H Urine Ketones Trace H Urine Blood Negative Urine Nitrite Negative Urine Bilirubin Small H Urine Urobilinogen 1.0 H Ur Leukocyte Esterase Negative Urine RBC Negative Urine WBC 3-5 Ur Epithelial Cells Moderate Urine Crystals Negative Urine Bacteria Negative Urine Mucus Moderate Urine Other Rare Renal Ur Culture Indicated? No Urine Glucose Negative Stl C.difficile Tox PCR Negative 05/25/24 16:42 WBC 7.18 RBC 4.03 L Hgb 11.8 L Hct 34.5 L MCV 86 MCH 29.3 MCHC 34.2 RDW 13.1 Plt Count 158 MPV 8.9 Immature Gran % 0.4 Neutrophils % 70.6 Lymphocytes % 14.9 Monocytes % 11.3 Eosinophils % 2.4 Basophils % 0.4 Nucleated RBC % 0.0 Absolute Neutrophils 5.07 Absolute Lymphocytes 1.07 L Absolute Monocytes 0.81 H Absolute Eosinophils 0.17 Absolute Basophils 0.03 VBG Lactate Sodium 140 Potassium 3.7 Chloride 108 H Carbon Dioxide 23.7 Anion Gap 8.3 BUN 21 H Creatinine 1.0 Est GFR (CKD-EPI 2020) 84.05 Glucose 135 H Calcium 8.9 Magnesium 1.7 L Total Bilirubin 0.37 AST 17 ALT 20 Alkaline Phosphatase 83 Troponin I NT-Pro-B Natriuret Pep Total Protein 6.0 L Albumin 2.1 L Procalcitonin Urine Color Urine Clarity Urine pH Ur Specific [place] Urine Protein Urine Ketones Urine Blood Urine Nitrite Urine Bilirubin Urine Urobilinogen Ur Leukocyte Esterase Urine RBC Urine WBC Ur Epithelial Cells Urine Crystals Urine Bacteria Urine Mucus Urine Other Ur Culture Indicated? Urine Glucose Stl C.difficile Tox PCR Time Spent with Patient Time Spent with Patient: 25-34 minutes Time was spent: preparing to see the patient(eg.review tests), ordering medications,tests, procedures, referring, communicating with other health residential care facility manager, indepentently interpreting results, counseling the patient and care coordination
[2024-05-25] MEDS: Loperamide 2 MG CAP 4 MG PO (19:33)
[2024-05-25] MEDS: Normal Saline Flush 10 ML SYR IVP ×2 (19:47→20:00)
[2024-05-25 19:48] VITALS: BP 143/104; PULSE 85; RESP 18; TEMP 36.5; O2SAT 94
[2024-05-25 21:53] VITALS: BP 107/59; PULSE 85; RESP 16; TEMP 37.7; O2SAT 93
[2024-05-25] MEDS: HYDROmorphone 2 MG/ML SYR 0.5 MG IVP (22:01)
--- NOTE | 2024-05-26 | DI.US_ITS ---
Exam(s) US LOWER EXTREMITY VENOUS LT EXAM: US LOWER EXTREMITY VENOUS LT CLINICAL HISTORY: Swelling (unilateral) pain. TECHNIQUE: Lower extremity venous ultrasound performed using grayscale, color-flow, and spectral Do ppler analysis. COMPARISON: No exams were available for comparison FINDINGS: The common femoral, femoral and popliteal veins demonstrate normal compressibility, augmentation, and color Doppler. The posterior tibial veins are patent. No saphenous vein thrombosis or other superfi cial venous thrombosis is seen. No hematoma or Guo's cyst is seen. There is subcutaneous edema in the lower leg. IMPRESSION: Edema. No evidence of DVT. DATA REPOSITORY:
--- NOTE | 2024-05-26 | DI.RAD_ITS ---
Exam(s) XR FOOT LT COMPLETE EXAM: XR FOOT LT COMPLETE CLINICAL HISTORY: Pain and swelling (? trauma). TECHNIQUE: 2D digital imaging was performed. Three views. COMPARISON: No exams were available for comparison FINDINGS: BONES: No acute fracture is present. No bony destructive lesion is seen. JOINTS: No dislocation present. No significant degenerative changes. SOFT TISSUE: Swelling no particular at the dorsum of foot. No foreign body. No abnormal gas collect ion. IMPRESSION: Soft tissue swelling. DATA REPOSITORY: RADIATION DOSE DELIVERED:
[2024-05-26] MEDS: Acetaminophen 325 MG TAB 650 MG PO ×2 (02:20→21:24)
[2024-05-26 02:23] VITALS: BP 126/74; PULSE 79; RESP 18; TEMP 36.9; O2SAT 93
[2024-05-26] MEDS: Lactated Ringers 1,000 ML 125 ML IV ×2 (03:25→17:32)
[2024-05-26 06:49] LABS: Abs Immature Grans 0.03 10^3/uL (0.0-0.06); Absolute Basophil Count 0.04 10^3/uL (0.0-0.2); Absolute Eosinophil Count 0.25 10^3/uL (0.0-0.7); Absolute Lymphocyte Count 1.71 10^3/uL (1.2-3.4); Absolute Monocyte Count 0.83 10^3/uL (0.1-0.8); Absolute Neutrophil Count 4.04 10^3/uL (1.2-6.7); Basophils % 0.6 %; Eosinophils % 3.6 %; HCT 30.6 % (40.0-50.0); HGB 10.7 g/dL (13.5-17.5); Immature Grans % 0.4 %; Lymphocytes % 24.8 %; MCH 29.7 pg (27.0-33.0); MCV 85 fL (80-95); MPV 8.9 fL (8.0-11.0); Neutrophils % 58.6 %; Platelet Count 163 10^3/uL (130-400); RDW-SD 39.8 fL
[2024-05-26 06:56] LABS: Anion Gap 7.2 mmol/L (3-11); BUN 16 mg/dL (7-18); CO2 23.8 mmol/L (21.0-32.0); CREATININE 0.9 mg/dL (0.70-1.30); Chloride 107 mmol/L (98-107); Estimated GFR 95.37 (mL/min/1.73m2); Glucose 133 mg/dL (74-106); Magnesium 1.6 mg/dL (1.8-2.4); Potassium 3.6 mmol/L (3.5-5.1); Sodium 138 mmol/L (136-145)
[2024-05-26 07:38] VITALS: BP 129/72; PULSE 69; RESP 16; TEMP 36.5; O2SAT 96
[2024-05-26] MEDS: Omeprazole 20 MG CAPCR PO ×2 (07:49→19:27)
[2024-05-26] MEDS: NIFEdipine-CR 30 MG TABCR 60 MG PO (07:49)
[2024-05-26] MEDS: Cetirizine 10 MG TAB PO (07:49)
[2024-05-26] MEDS: buPROPion-XL 150 MG TABCR PO (07:50)
[2024-05-26] MEDS: Metoprolol 50 MG TAB 100 MG PO ×2 (07:50→19:27)
[2024-05-26] MEDS: Atorvastatin 20 MG TAB PO (07:50)
[2024-05-26] MEDS: Cholecalciferol (Vitamin D3) 1,000 UNIT TAB 1000 UNITS PO (07:50)
[2024-05-26] MEDS: Montelukast 10 MG TAB PO (07:50)
[2024-05-26] MEDS: Gabapentin 300 MG CAP PO ×2 (07:50→19:27)
[2024-05-26] MEDS: Enoxaparin 40 MG/0.4 ML SYR SC (07:54)
[2024-05-26] MEDS: Normal Saline Flush 10 ML SYR IVP ×3 (07:55→19:40)
[2024-05-26] MEDS: ARIPiprazole 2 MG TAB PO (10:19)
[2024-05-26] MEDS: MAGNESIUM SULFATE 2 GM/50 ML BAG IVINF (10:19)
[2024-05-26 11:00] LABS: Campylobacter PCR Negative (Negative); Salmonella PCR Negative (Negative); Shiga Toxin PCR Negative (Negative); Shigella/Enteroinvasive Ecoli Negative (Negative)
[2024-05-26 11:13] VITALS: BP 130/72; PULSE 65; RESP 16; TEMP 36.3; O2SAT 99
[2024-05-26] MEDS: Insulin Aspart 300 UNITS/3 ML PEN SC (12:28)
[2024-05-26] MEDS: Amoxicillin 875/Clav. 125 TAB PO ×2 (14:40→23:32)
[2024-05-26 15:21] VITALS: BP 105/46; PULSE 72; RESP 17; TEMP 36.7; O2SAT 94
--- NOTE | 2024-05-26 15:49 | W.PM.PROGNOT ---
Date of Service Date of service: 05/26/24 Time of Service: 15:49 Assessment and Plan Assessment and plan (1) Diarrhea: Status: Acute Assessment and plan: Acute, non-specific diarrheal illness. No identified risk factors for C diff. CDiff negative, and bacterial pathogens still pending, imodium MIVF Adv to full diet (2) Swelling of left lower extremity: Status: Acute Assessment and plan: Patient's left foot is swollen and painful. US neg for DVT, left foot xray negative for vivi injury. Patient does think he injured it 3 weeks ago. There is no open areas, it is not red or hot. He did receive IV abx in the ED which he states improved the pain in his LLE. He does have positive procal - neg leukocytosis, will add on a CRP, will recheck tomorrow, in the interim started augmentin BID. (3) Stage II decubitus ulcer: Status: Acute Assessment and plan: Wound consult scheduled for 05/27 Mepalex Turn frequently Nanette cream Jennifer chavez (4) Syncope: Status: Chronic Assessment and plan: No further bradycardia or hypotension Continue tele and monitor vs (5) Parkinson's disease with dyskinesia without fluctuating manifestations: Status: Chronic Assessment and plan: Stable, Continue home meds (6) Insomnia: Status: Acute Assessment and plan: Offer melatonin a HS Subjective Subjective Patient reports: no new complaints, feels better, pain is less, voiding w/o difficulty (Bergeron catheter removed), bowel movement and afebrile; denies diarrhea, blood in stool, nausea, vomiting or shortness of breath Interval history since last seen: Patient states that he is feeling better. Exam Narrative Exam Narrative: Reviewed nurses notes and vs Review of Systems: All systems reviewed & are unremarkable except as noted in HPI and below Well-developed, ill-appearing NCAT PERRL, normal conjunctiva RRR no murmur Unlabored respiratory effort clear bilaterally Nondistended abdomen soft nontender Skin breakdown noted in buttocks area, red, open, excoriated LLE swollen to mid calf Objective Last Vital Signs Temp 36.7 C 05/26/24 15:21 Pulse 72 05/26/24 15:21 Resp 17 05/26/24 15:21 BP 105/46 L 05/26/24 15:21 Pulse Ox 94 08/21/24 15:21 Laboratory Results - last 24 hr 05/25/24 05/25/24 05/26/24 16:42 22:20 06:15 WBC 7.18 6.90 RBC 4.03 L 3.60 L Hgb 11.8 L 10.7 L Hct 34.5 L 30.6 L MCV 86 85 MCH 29.3 29.7 MCHC 34.2 35.0 RDW 13.1 13.0 Plt Count 158 163 MPV 8.9 8.9 Immature Gran % 0.4 0.4 Neutrophils % 70.6 58.6 Lymphocytes % 14.9 24.8 Monocytes % 11.3 12.0 Eosinophils % 2.4 3.6 Basophils % 0.4 0.6 Nucleated RBC % 0.0 0.0 Absolute Neutrophils 5.07 4.04 Absolute Lymphocytes 1.07 L 1.71 Absolute Monocytes 0.81 H 0.83 H Absolute Eosinophils 0.17 0.25 Absolute Basophils 0.03 0.04 Sodium 140 138 Potassium 3.7 3.6 Chloride 108 H 107 Carbon Dioxide 23.7 23.8 Anion Gap 8.3 7.2 BUN 21 H 16 Creatinine 1.0 0.9 Est GFR (CKD-EPI 2020) 84.05 95.37 Glucose 135 H 133 H Calcium 8.9 9.0 Magnesium 1.7 L 1.6 L Total Bilirubin 0.37 AST 17 ALT 20 Alkaline Phosphatase 83 Total Protein 6.0 L Albumin 2.1 L Stool Campylobacter PCR Negative Stool Salmonella PCR Negative Stool Shigella PCR Negative Shiga Toxin (PCR) Negative Time Spent with Patient Time Spent with Patient: 25-34 minutes Time was spent: preparing to see the patient(eg.review tests), ordering medications,tests, procedures, referring, communicating with other health intensive care unit registered nurse, indepentently interpreting results, counseling the patient and care coordination
--- NOTE | 2024-05-26 15:51 | NUR.NOTE ---
Nursing Note: notified provider of low BP-105/46, no new orders
--- NOTE | 2024-05-26 16:42 | CMPROGNOTE_ITS ---
Date of service: 05/26/24 Time of Service: 16:42 Care Management Progress Note Progress Note Text Progress Note Text: Fortunato remains observation status-[employer]. Bergeron catheter placed-and removed. R/O possible clot per MARKETING OPERATIONS ASSISTANT related to LLE edema. Also awaiting wound consult for decubitis ulcer-per MARKETING OPERATIONS ASSISTANT. Fortunato reports feeling better overall-CM following. Discharge Potential Discharge Needs: Consult Consult Services Needed: Other (Wound RN) Anticipated Barriers to Discharge: Treatment delay (Wound consult) Patient/Family Education Needs: Review discharge instructions, discuss Ask Me Three Transportation: Private vehicle ([place]) Plan: Undetermined if Fortunato require increased supports upon discharge; CM following. SDOH(Care Management) Screening Will the Patient Participate in the Screening?: Declined to provide
[2024-05-26 18:41] LABS: Procalcitonin 0.6 ng/mL
[2024-05-26 19:17] VITALS: BP 134/71; PULSE 74; RESP 17; TEMP 36.4; O2SAT 96
[2024-05-26 23:26] VITALS: BP 130/59; PULSE 80; RESP 18; TEMP 36.9; O2SAT 94
[2024-05-27] MEDS: Lactated Ringers 1,000 ML 125 ML IV (02:05)
[2024-05-27 03:05] VITALS: BP 97/54; PULSE 78; RESP 17; TEMP 36.6; O2SAT 95
[2024-05-27 03:27] VITALS: BP 128/86
[2024-05-27 07:19] LABS: Abs Immature Grans 0.04 10^3/uL (0.0-0.06); Absolute Basophil Count 0.04 10^3/uL (0.0-0.2); Absolute Eosinophil Count 0.27 10^3/uL (0.0-0.7); Absolute Neutrophil Count 3.77 10^3/uL (1.2-6.7); Basophils % 0.6 %; Eosinophils % 4.3 %; HCT 32.1 % (40.0-50.0); HGB 10.9 g/dL (13.5-17.5); Immature Grans % 0.6 %; Lymphocytes % 24.1 %; MCH 28.8 pg (27.0-33.0); MCV 85 fL (80-95); MPV 9.2 fL (8.0-11.0); Monocytes % 9.6 %; Neutrophils % 60.8 %; Platelet Count 166 10^3/uL (130-400); RBC 3.78 10^6/uL (4.36-5.78); RDW 12.8 % (11.8-14.1); RDW-SD 39.2 fL; WBC 6.22 10^3/uL (4.4-10.8)
[2024-05-27 07:40] LABS: Anion Gap 6.7 mmol/L (3-11); BUN 13 mg/dL (7-18); CO2 27.3 mmol/L (21.0-32.0); CREATININE 0.9 mg/dL (0.70-1.30); Calcium 8.9 mg/dL (8.5-10.1); Chloride 108 mmol/L (98-107); Estimated GFR 95.37 (mL/min/1.73m2); Glucose 141 mg/dL (74-106); Magnesium 1.8 mg/dL (1.8-2.4); Potassium 3.9 mmol/L (3.5-5.1); Sodium 142 mmol/L (136-145)
[2024-05-27 08:07] VITALS: BP 146/97; PULSE 70; RESP 15; TEMP 35.8; O2SAT 98
[2024-05-27] MEDS: NIFEdipine-CR 30 MG TABCR 60 MG PO (08:22)
[2024-05-27] MEDS: Metoprolol 50 MG TAB 100 MG PO (08:23)
[2024-05-27] MEDS: Omeprazole 20 MG CAPCR PO (08:23)
[2024-05-27] MEDS: Cholecalciferol (Vitamin D3) 1,000 UNIT TAB 1000 UNITS PO (08:23)
[2024-05-27] MEDS: Atorvastatin 20 MG TAB PO (08:23)
[2024-05-27] MEDS: ARIPiprazole 2 MG TAB PO (08:23)
[2024-05-27] MEDS: Amoxicillin 875/Clav. 125 TAB PO (08:23)
[2024-05-27] MEDS: Enoxaparin 40 MG/0.4 ML SYR SC (08:24)
[2024-05-27] MEDS: Normal Saline Flush 10 ML SYR IVP (08:24)
[2024-05-27] MEDS: Montelukast 10 MG TAB PO (08:24)
[2024-05-27] MEDS: Gabapentin 300 MG CAP PO (08:24)
[2024-05-27] MEDS: Cetirizine 10 MG TAB PO (08:24)
[2024-05-27] MEDS: buPROPion-XL 150 MG TABCR PO (08:24)
[2024-05-27] MEDS: Insulin Aspart 300 UNITS/3 ML PEN SC (08:26)
[2024-05-27] MEDS: Acetaminophen 325 MG TAB 650 MG PO (09:09)
--- NOTE | 2024-05-27 10:21 | PDOC.CMPRO ---
Date of service: 05/27/24 Time of Service: 10:21 SDOH(Care Management) Screening Will the Patient Participate in the Screening?: Declined to provide
[2024-05-27] MEDS: Magnesium Chloride 64 MG TABCR PO (10:56)
--- NOTE | 2024-05-27 11:15 | NUR.NOTE ---
Nursing Note: Wound nurse in to see pt. Gluteal wounds are from contact dermatitis from loose stool. Instructed pt on susan bottle use and gentle patting of the area, no wiping, then use the Nanette cream. Wound nurse also commented that the top of left foot is petechial, and there is a small necrotic spot on the edge of his left pinky toe, needs POD consult as he is diabetic.
--- NOTE | 2024-05-27 12:06 | WOUNDCONS_ITS ---
Date of service: 05/27/24 Time of Service: 11:00 Wound Initial Evaluation Narrative Narrative: Pt admitted after several days of profuse diarrhea. Ct scan showed colitis. C diff tested negative as well as stool for pathogens. Pt was treated with a rectal tube until diarrhea resolved. Pt does have a history of Diabetes, HTN, TBI, and Parkinson's. Initial labs showed a WBC of 12.46 now down to 6.22, Procalcitonin of 3.0 down to 0.6, blood sugars ranging from the 130's to 180's, and CRP of 8.7. Body Four View: 2 1. Ischial tuberosities, gluteal cleft Wound bilateral ischial tuberosities, gluteal cleft: Wound Type: Maceration (contact dermatitis from several days of diarrhea) and Partial Thickness Wound General Appearance: Open to air, Reddened and Denuded Wound Bed Greatest Portion: Red (Granulation) and Shiny Wound Surrounding Tissue Appearance: Dark Red and Purple Percent of Wound Bed Granulated/Red: 25 Percent of Wound Bed Slough/Yellow: 0 Percent of Wound Bed Eschar/Black: 0 Wound Drainage Amount: None (states has been bleeding after wiping from bowel movements) Wound Drainage Odor: None/Absent Wound Topical Solution/Irrigant: Other (Anasept) Wound Debridement Method: Gauze (pat dry) Wound Debridement Result: Other (unchanged) Wound Debridement Amount of Tissue Removed: None Circulation, Sensation, Motion Skin Temperature: Warm Skin Color: Normal Pain Pain Level: 3 Pain Scale Used: Adult Pain Description: Burning and Achy Pain Duration/Frequency: Intermittent and With Palpation Wound Summary Wound Summary: Patient states that diarrhea has improved but still having bleeding from wiping the area. Advised to use a susan bottle after bowel movements and to pat the area dry not wipe. Does have open areas that are not currently bleeding. Photo Photo: Bilateral ischial tuberosities, gluteal jeferson Treatment/Dressing Change Topicals/Ointments: Medicated Ointment (Nanette cream), Zincoxide and Other (Nanette cream) Cleanse With: Anasept (once or twice daily or with bowel movements that are difficult to rinse off with warm water.) and Other (warm water with susan bottle after every bowel movement, pat dry) Nutrition Education Reviewed Nutrition Education: Yes Note: discussed good protein intake and blood sugar control Recomendation Recomendation:: Discussed with pt to use a susan bottle with warm water to rinse after every bowel movement and to pat the area dry. Can use the Anasept cleanser for more adhesive bowel movements if not easily removed with water. Apply the Nanette cream which includes zinc oxide, clotrimazole cream and A&D ointment after every bowel movement. Keep the area clean and dry. Physcian/Nurse Practioner Notified: Yes (Essence Menjivar) Treatment Time Time Total Time Spent with Patient: 45 minutes
[2024-05-27 12:09] VITALS: BP 148/82; PULSE 75; RESP 15; TEMP 36.4; O2SAT 98
--- NOTE | 2024-05-27 12:46 | WOUNDCONS ---
Date of service: 05/27/24 Time of Service: 11:30 Wound Initial Evaluation Narrative Narrative: Pt states he stubbed his left 5th toe about 4 weeks ago. Remains sore with lower extremity swelling. Vascular studies ruled out a DVT. Area is crusted over with a necrotic area noted. Pt is a diabetic and is being seen by Dr. Martinez at the [facility] location. Last seen about 6 weeks ago prior to the toe injury. Body Four View: 1. Wound Left 5th toe: Wound Type: Diabetic Ulcer (after sustaining a stubbed toe) and Deep Tissue Injury (DTI) Wound General Appearance: Open to air, Clean/Dry and Necrotic (flakey) Wound Bed Greatest Portion: Yellow (Slough) (flakey) Wound Bed Lesser Portion: Black (Eschar) Wound Surrounding Tissue Appearance: Blanched/Dull Percent of Wound Bed Granulated/Red: 0 Percent of Wound Bed Slough/Yellow: 70 Percent of Wound Bed Eschar/Black: 30 Wound Length: 0.39 in Wound Width: 0.79 in Wound Drainage Amount: None Wound Drainage Odor: None/Absent Wound Topical Solution/Irrigant: Other (Anasept spray) Wound Debridement Method: Other (Debrisoft sponge) Wound Debridement Result: Yellow Sloughing Remains and Necrotic Remains Wound Debridement Amount of Tissue Removed: None Circulation, Sensation, Motion Edema Degree: 3+ Peripheral Pulse Strength: Weak Capillary Refill: Greater than 3 seconds (4-5 seconds) Skin Temperature: Warm Skin Color: [place], Pale (foot pink, toes pale) and Petechiae Additional Other Comments: foot pink with petechiae, toes pale RAUL Comment:: RAUL machine not available Pain Pain Level: 0 Pain Scale Used: Adult Pain Description: Numbness (in toes) Wound Summary Wound Summary: Pt does have area of necrotic tissue on left 5th toe with crusting. Photo Photo: Treatment/Dressing Change Topicals/Ointments: Santyl Cleanse With: Anasept Dressing Types: Mepilex w/Border, Sterile Gauze and Skin Prep Nutrition Education Reviewed Nutrition Education: Yes Recomendation Recomendation:: 1. Cleanse the toe with Anasept spray and allow to dwell for 2 minutes. Pat dry with gauze. 2. Apply a pea size amount of Santyl ointment to the flakey, necrotic area of the 5th left toe. 3. Cover with one 2x2 gauze. 4. Use Skinprep at base of toe. 5. Cover with a Mepilex dressing. 6. Change dressing daily. Physcian/Nurse Practioner Notified: Yes Referrals: Podiatry (Sees Dr. Martinez in [place]) Treatment Time Time Total Time Spent with Patient: 40 minutes
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
--- NOTE | 2024-05-27 14:53 | PDOC.CMDIS ---
Date of service: 05/27/24 Time of Service: 14:53 Care Management Discharge Plan Reason for Hospitalization: Diarrhea Discharge Plan: Fortunato is discharged home on PO ABX and Davion SUAREZ RN services for wound care. He will follow up with community providers and his discharge plan of care as instructed. Patient/Family Education Needs: Review discharge instructions, limitations, medications and plan to follow up with community providers. Discuss ask me three. Services Needed at Discharge: Home Health Care Services (Davion SUAREZ RN) SDOH Health Related Social Needs: No Data to Display
--- NOTE | 2024-05-27 14:58 | PDOC.HHF2F_ITS ---
Home Health Referral Home Health Orders Clinical synopsis of why skilled professionals are needed: wound care, monitoring. routine nursing evaluation and care Medical diagnosis necessitation home health referral: Parkinson Registered Nurse: Check all that apply Instruct on new or changed medication(s)/assess compliance: Ordered Assess wound for signs and symptoms of infection, instruct on wound care and/or provide skilled wound care consisting of: wound care : periuse a susan bottle with warm water to rinse after every bowel movement and to pat the area dry. Can use the Anasept cleanser for more adhesive bowel movements if not easily removed with water. Apply the compound cream which includes zinc oxide, clotrimazole cream and A&D ointment after every bowel movement. Keep the area clean and dry. toe: Recommendation 1. Cleanse the toe with Anasept spray and allow to dwell for 2 minutes. Pat dry with gauze. 2. Apply a pea size amount of Santyl ointment to the flaky, necrotic area of the 5th left toe. 3. Cover with one 2x2 gauze. 4. Use Skinprep at base of toe. 5. Cover with a Mepilex dressing. 6. Change dressing daily. Encounter Date and Reason: I certify that a FTF encounter for this patient was performed on May 27, 2024 and that such encounter was related to the primary reason the patient requires h ome health services. The encounter was conducted in the following manner: * By me as the certifying physician, DIRECTOR OF ADULT EPILEPSY, PA or * By an inpatient physician, DIRECTOR OF ADULT EPILEPSY or PA during an inpatient stay who communicated findings to me, Certification And Authentication I certify that I composed the above information based on my clinical judgment relating to this patient's medical condition and, if applicable, clinical findings communicated to me by the NPP or inpatient physician who performed the FTF encounter. Name of Provider that will be monitoring home health services: Jake León
== END 2024-05-27 15:00 | disposition home health service (06) ==
LOC: ER 21:25 → EDHOLD 05-25 07:25 → MS 05-25 17:50
PROVIDERS: Nurse Practitioner Family; Admitting Provider General Practice; Emergency Provider Emergency Medicine; PCP Internal Medicine; Visit Provider General Practice
DX: K52.9 Noninfective gastroenteritis and colitis, unspecified (principal); I95.9 Hypotension, unspecified; R00.1 Bradycardia, unspecified; L89.152 Pressure ulcer of sacral region, stage 2; G20.B1 Parkinson's disease with dyskinesia, without mention of fluctuations; R55 Syncope and collapse; G47.00 Insomnia, unspecified; E11.65 Type 2 diabetes mellitus with hyperglycemia; Z79.85 Long-term (current) use of injectable non-insulin antidiabetic drugs; F43.12 Post-traumatic stress disorder, chronic; F41.1 Generalized anxiety disorder; K21.9 Gastro-esophageal reflux disease without esophagitis; F33.9 Major depressive disorder, recurrent, unspecified; I10 Essential (primary) hypertension; E78.00 Pure hypercholesterolemia, unspecified; M79.89 Other specified soft tissue disorders; E11.621 Type 2 diabetes mellitus with foot ulcer; L97.528 Non-pressure chronic ulcer of other part of left foot with other specified severity
CPT/HCPCS: 00123; 36415; 80048; 80053; 84145; 87040; 87493; 87505; 96361; 96365; 96367; 96372; 96375; 99285; J1650; 73630; 74177; 81003; 81015; 83605; 83735; 83880; 84484; 85025; 86140; 93971; 99222; 99231; 99239; G0378; J1170; J1815; J2543; J3370; J3475; J3490

== ENCOUNTER 2025-05-01 21:48 | Inpatient (IN) | payer OTHER, SELFPAY ==
[2025-05-01] VITALS (18 sets, daily range): BP systolic 148–170; BP diastolic 78–91; PULSE 70–77; RESP 12–24; TEMP 36.8; O2SAT 96–99
--- NOTE | 2025-05-01 21:45 | RT.EKG_ITS ---
APPROVED REPORT Exam: Resting ECG Reason for Exam: Chest pain Patient Location: E HR:72 bpm ECG Measurements Heart Rate 72 AXIS NJ 258 P 52 QRSd 108 QRS -58 QT 390 T 230 QTc 428 Conclusion Sinus rhythm...normal P axis, V-rate 60- 99 Prolonged NJ interval...NJ >220, V-rate 50- 90 LAD, consider left anterior fascicular block...axis(240,-40), S>R II III aVF Posterior infarct, old...prom R T, V1-V3 or Q >40mS, V7-V9 Nonspecific repol abnormality, lateral leads...ST dep, T neg, I aVL V5 V6 Sinus rhythm with first degree heart bloock, left axis deviation, ST depressions lateral and inferior leads. When compared to prior 05/28/23 ST depressions are new. WD
--- NOTE | 2025-05-01 22:15 | DI.CT_ITS ---
Exam(s) CT CHEST PE CTA EXAM: CT CHEST PE CTA CLINICAL HISTORY: Chest pain concern for PE. TECHNIQUE: Imaging Protocol: CT angiography of the chest was performed using pulmonary embolus protocol. Multi planar reconstructions were performed. CONTRAST MATERIAL: Intravenous: Omnipaque 350 Contrast volume: 85 cc COMPARISON: No exams were available for comparison FINDINGS: CHEST: PULMONARY ARTERIES: There are no intraluminal filling defects to suggest acute pulmonary emboli. LUNGS: There is small bilateral non loculated pleural effusions, right slightly larger than left. There is some atelectasis in both lung bases. There is a benign calcified granuloma in the lateral basal segment of the right lower lobe and some corresponding the calcified right hilar lymph nodes.. MEDIASTINUM: There is no significant hilar adenopathy the nor mediastinal adenopathy. No axillary adenopathy. Visualized thyroid unremarkable. CARDIAC: Heart size is upper normal. There is no pericardial effusion.Caliber of the thoracic aorta is within normal limits. No evidence of dissection. There is no significant shift of the interventricular septum. PARTIALLY VISUALIZED UPPERMOST ABDOMEN: No adrenal masses. Normal spleen size. No ascites. OSSEOUS: No significant osseous lesions.. IMPRESSION: 1. No evidence of acute pulmonary emboli. No evidence of pulmonary infarction. 2. There is small non loculated bilateral pleural effusions and mild atelectasis in both lung bases. Preliminary virtual Radiology report was reviewed RADIATION DOSE DELIVERED: 142.86mGy.cm Total DLP DATA REPOSITORY: All CT scans at this facility are submitted to the National Radiology Data Registry (NRDR) Dose Index Registry (DIR) with the [employer] (ACR). RADIATION OPTIMIZATION: All CT scans at this facility use at least one of these dose optimization techniques: automated exposure control; mA and/or kV adjustment per patient size (includes targeted exams where dose is matched to clinical indication); or iterative reconstruction.
[2025-05-01 22:21] LABS: Abs Immature Grans 0.03 10^3/uL (0.0-0.06); HCT 38.0 % (40.0-50.0); HGB 13.0 g/dL (13.5-17.5); Immature Grans % 0.4 %; MCH 29.5 pg (27.0-33.0); MCHC 34.2 % (32.0-36.0); MCV 86 fL (80-95); MPV 9.3 fL (8.0-11.0); Platelet Count 172 10^3/uL (130-400); RBC 4.40 10^6/uL (4.36-5.78); RDW 13.3 % (11.8-14.1); RDW-SD 41.5 fL; WBC 8.24 10^3/uL (4.4-10.8)
[2025-05-01] MEDS: Aspirin 81 MG CHEW 324 MG CH (22:26)
[2025-05-01 22:43] LABS: ALT 23 U/L (16-63); AST 17 U/L (15-37); Albumin 3.2 g/dL (3.4-5.0); Alkaline Phosphatase 94 U/L (46-116); Anion Gap 6.4 mmol/L (3-11); BUN 26 mg/dL (7-18); Bilirubin, Total 0.4 mg/dL (0.2-1.0); CO2 27.6 mmol/L (21.0-32.0); Calcium 9.4 mg/dL (8.5-10.1); Chloride 108 mmol/L (98-107); Estimated GFR 83.52 (mL/min/1.73m2); Glucose 189 mg/dL (74-106); Lipase 18 U/L (<78); Magnesium 1.9 mg/dL (1.8-2.4); NT-proBNP 1693 pg/mL (<300); Potassium 4.6 mmol/L (3.5-5.1); Sodium 142 mmol/L (136-145); Total Protein 6.6 g/dL (6.4-8.2)
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
[2025-05-01 22:49] LABS: Troponin I 299 ng/L (<or=76)
[2025-05-01] MEDS: Omnipaque 350 MG/ML 100 ML BTL IJ (22:54)
[2025-05-01] MEDS: Normal Saline - Diluent 50 ML VIAL IJ (22:56)
[2025-05-01] MEDS: Normal Saline Flush 10 ML SYR IVP (22:56)
--- NOTE | 2025-05-01 23:19 | DI.VRAD_ITS ---
PROCEDURE INFORMATION: Exam: CTA Chest With Contrast Exam date and time: 05/01/2025 10:53 PM Age: 64 years old Clinical indication: Chest pain, concern for pe TECHNIQUE: Imaging protocol: Computed tomographic angiography of the chest with contrast. Exam focused on the arteries. 3D rendering (Not supervised by radiologist): MIP and/or 3D reconstructed images were created by the technologist. Radiation optimization: All CT scans at this facility use at least one of these dose optimization techniques: automated exposure control; mA and/or kV adjustment per patient size (includes targeted exams where dose is matched to clinical indication); or iterative reconstruction. Contrast material: OMNIPAQUE 350; Contrast volume: 85 ml; Contrast route: INTRAVENOUS (IV); COMPARISON: US AAA SCREENING 02/16/2025 7:31 AM FINDINGS: Pulmonary arteries: Normal. No pulmonary emboli. Aorta: Unremarkable. No aortic aneurysm. No aortic dissection. Lungs: Mild atelectasis is present at the dependent lung bases. The lungs are otherwise clear. There is a right basilar calcified granuloma. Pleural spaces: There are small bilateral low-density pleural effusions. Heart: Heart is normal size. No pericardial effusion. Lymph nodes: No enlarged lymph nodes. Bones/joints: Bones have a normal appearance. No acute fracture or suspicious bone lesion. Soft tissues: Unremarkable. IMPRESSION: 1. No pulmonary embolus. 2. Small bilateral pleural effusions and compressive atelectasis at the dependent lung bases. Dictated and Authenticated by: Madeleine Lehman MD. Orderin Wagner Daniels MD
[2025-05-01 23:36] LABS: Lab Add On Test DONE
[2025-05-01 23:40] LABS: Troponin I 282 ng/L (<or=76)
[2025-05-01 23:47] LABS: INR 1.1 (0.9-1.1); PTT Activated 25.1 sec (20.6-30.2); Prothrombin Time 10.8 sec (9.1-11.1)
[2025-05-02] VITALS (7 sets, daily range): BP systolic 130–156; BP diastolic 73–93; PULSE 71–82; RESP 14–20; TEMP 36.3–37; O2SAT 94–98
[2025-05-02] MEDS: Heparin in 0.45% NaCl 25,000 UNIT/250 ML BAG 10 UNIT IVINF (00:14)
[2025-05-02] MEDS: Atorvastatin 40 MG TAB 80 MG PO (00:19)
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
--- NOTE | 2025-05-02 00:39 | ED.PROG_ITS ---
Date of service: 05/02/25 Time of Service: 00:39 Medical Decision Making Patient was signed out to me by my colleague Francesgabby HanWagner. Please refer to her HPI, physical exam, assessment and plan. At time of signout we are pending callback from [facility] after the patient's initial troponin was elevated. I discussed the case with [facility], specifically Dr. Smith. And with the patient's EKG changes, elevated troponin, family history, and risk factors it was felt that his symptoms are consistent with unstable angina. Unfortunately [facility] does not have any beds but they are currently placing for the . We will keep the patient here. It was recommended we start a Brilinta load at 180 mg, increase his atorvastatin to 80 mg daily, and continue the aspirin and heparinize. As the patient remains chest pain-free, no indication for nitro. Patient will be excepted at [facility] under . I discussed the case with the hospitalist Dr. Spain, he agrees with the assessment and plan. Patient will be admitted. Discussed the case with the patient, his family m ember at bedside, and as well as his brother who is his next of kin. I have extensively reviewed the treatment plan with the patient. I have addressed all patient concerns at this time. I have also discussed the plan with the admitting physician and they agree with the current assessment and plan and have agreed to assume responsibility for the patient. All parties demonstrate verbal understanding and agreement with our assessment and plan at this time. The documentation in this chart was dictated using [employer] dictation software. Please excuse any dictation errors. Critical Care Time Critical Care Time Critical Care Time: Yes Total Critical Care Time: 45 Attestation: Upon my evaluation, this patient had a high probability of imminent or life- threatening deterioration, which required my direct attention, intervention, and personal management. I have personally provided 45 minutes of critical care time exclusive of time spent on separately billable procedures. Time includes review of laboratory data, radiology results, discussion with consultants, and monitoring for potential decompensation. Interventions were performed as documented. Discharge Plan Disposition Patient Disposition: Admit to [facility] Condition: Stable Discharge Details Clinical Impression: Non-ST elevation [place] (NSTEMI), Unstable angina Primary Care Provider: Roxi Castellon ED Provider: Moise Bennett Home Meds and New Rx's Prescriptions: No Action bupropion HCl 150 mg tablet extended release 24 hr 150 mg PO QAM Artificial Tears (cmc) 1 % drops 1 drp ophthalmic (eye) 4-6XD PRN cholecalciferol (vitamin D3) 25 mcg (1,000 unit) tablet 25 mcg PO DAILY lorazepam 1 mg tablet 1 mg PO DAILY PRN miconazole nitrate [Antifungal (miconazole)] 2 % cream 1 applic topical DAILY montelukast 10 mg tablet 10 mg PO DAILY nifedipine 60 mg tablet extended release 60 mg PO DAILY atorvastatin 20 mg Tablet 20 mg PO DAILY metoprolol tartrate 100 mg Tablet 100 mg PO BID omeprazole 20 mg Capsule,Delayed Release(Dr/Ec) 20 mg PO BID fluticasone propionate 50 mcg/actuation [place],Suspension 2 spray INTRANASAL DAILY cetirizine 10 mg Tablet 10 mg PO DAILY gabapentin 300 mg Tablet 300 mg PO BID aripiprazole 2 mg Tablet 2 mg PO DAILY semaglutide 0.25 mg or 0.5 mg(2 mg/1.5 mL) pen injector 0.5 mg SUBCUT 4-8XD Rx Instructions: once a week
--- NOTE | 2025-05-02 00:45 | W.PC.ACHO ---
Registration Status: REG ER Primary Language: Preferred Language: ED Information & Data Chief Complaint Chest Pain 05/01/25 22:49 Triage Note patient state he has been 05/01/25 21:51 having dull chest pain for several days now but today he had the chest pain twice, which was different from previous days . the pain localized to the center of his chest and does not radiates. Denies nausea and vomiting. pain is relieved with rocking back and forth Medical / Surgical History (Last Updated 11/25/24 @ 13:31 by Bernardino Ortiz) PTSD (post-traumatic stress disorder) Parkinson's disease with dyskinesia without fluctuating manifestations Insomnia TBI (traumatic brain injury) HTN (hypertension) Hypercholesterolemia Diabetes mellitus (Last Reviewed 11/25/24 @ 13:31 by Bernardino Ortiz) S/P appy Most Recent Vital Signs Temperature 36.8 C 05/01/25 21:51 Pulse 77 05/01/25 23:20 Pulse 77 05/01/25 23:20 Respiratory Rate 16 05/01/25 23:20 Respiratory Effort Normal 05/01/25 22:22 Respiratory Depth Normal 05/01/25 22:22 Respiratory Pattern Normal 05/01/25 22:22 Blood Pressure 156/91 H 05/01/25 23:15 Blood Pressure Mean 112 05/01/25 23:15 Pulse Oximetry 96 05/01/25 23:20 Oxygen Delivery Method Room Air 05/01/25 21:51 Oxygen Flow Rate 0 05/01/25 21:51 Allergies No Known Allergies Allergy (Verified 05/01/25 22:00) Active Medications Generic Name Dose Route Start Last Admin Trade Name Freq PRN Reason Stop Dose Admin Heparin Sodium/Sodium Chloride 25,000 unit in 250 mls @ 0 mls/hr 05/01/25 23:45 05/02/25 00:14 IVINF 10 mls/hr INFUSION MABEL 10 mls/hr Protocol Administration Per Protocol Iohexol 100 ml 05/01/25 23:00 05/01/25 22:54 Omnipaque 350 Mg/Ml 100 Ml Btl IJ 05/31/25 23:59 85 ml DIRECTED MABEL Administration Sodium Chloride 0 ml 05/01/25 22:56 05/01/25 22:56 Normal Saline Flush 10 Ml Syr IVP 10 ml PRN PRN Administration Sodium Chloride 50 ml 05/01/25 23:00 05/01/25 22:56 Normal Saline - Diluent 50 Ml Vial IJ 50 ml .FOR DI USE MABEL Administration IV IV Catheter Type [Left Saline Lock Antecubital] IV Catheter Gauge [Left 20 Antecubital] Diet Orders Category Date Time Status Diabetes Consistent CHO [DIET] Nutrition 05/02/25 Breakfast Active Diagnostics 05/02/25 05/02/25 05/02/25 Range/Units 05:35 01:15 00:29 WBC Pending (4.4-10.8) 10^3/uL RBC Pending (4.36-5.78) 10^6/uL Hgb Pending (13.5-17.5) g/dL Hct Pending (40.0-50.0) % MCV Pending (80-95) fL MCH Pending (27.0-33.0) pg MCHC Pending (32.0-36.0) % RDW Pending (11.8-14.1) % Plt Count Pending (130-400) 10^3/uL MPV Pending (8.0-11.0) fL Immature Gran % Pending % Neutrophils % Pending % Lymphocytes % Pending % Monocytes % Pending % Eosinophils % Pending % Basophils % Pending % Nucleated RBC % (0.0-0.3) % Absolute Neutrophils Pending (1.2-6.7) 10^3/uL Absolute Lymphocytes Pending (1.2-3.4) 10^3/uL Absolute Monocytes Pending (0.1-0.8) 10^3/uL Absolute Eosinophils Pending (0.0-0.7) 10^3/uL Absolute Basophils Pending (0.0-0.2) 10^3/uL PT (9.1-11.1) sec INR (0.9-1.1) APTT (20.6-30.2) sec Sodium Pending (136-145) mmol/L Potassium Pending (3.5-5.1) mmol/L Chloride Pending (98-107) mmol/L Carbon Dioxide Pending (21.0-32.0) mmol/L Anion Gap Pending (3-11) mmol/L BUN Pending (7-18) mg/dL Creatinine Pending (0.70-1.30) mg/dL Est GFR (CKD-EPI 2020) Pending (mL/min/1.73m2) Glucose Pending (74-106) mg/dL Hemoglobin A1c Pending Calcium Pending (8.5-10.1) mg/dL Magnesium (1.8-2.4) mg/dL Total Bilirubin Pending (0.2-1.0) mg/dL AST Pending (15-37) U/L ALT Pending (16-63) U/L Alkaline Phosphatase Pending (46-116) U/L Troponin I Pending (<or=76) ng/L NT-Pro-B Natriuret Pep (<300) pg/mL Total Protein Pending (6.4-8.2) g/dL Albumin Pending (3.4-5.0) g/dL Lipase (<78) U/L Add-On Test Request 05/01/25 05/01/25 Range/Units 23:15 22:02 WBC 8.24 (4.4-10.8) 10^3/uL RBC 4.40 (4.36-5.78) 10^6/uL Hgb 13.0 L (13.5-17.5) g/dL Hct 38.0 L (40.0-50.0) % MCV 86 (80-95) fL MCH 29.5 (27.0-33.0) pg MCHC 34.2 (32.0-36.0) % RDW 13.3 (11.8-14.1) % Plt Count 172 (130-400) 10^3/uL MPV 9.3 (8.0-11.0) fL Immature Gran % 0.4 % Neutrophils % 64.4 % Lymphocytes % 23.3 % Monocytes % 7.9 % Eosinophils % 3.5 % Basophils % 0.5 % Nucleated RBC % 0.0 (0.0-0.3) % Absolute Neutrophils 5.31 (1.2-6.7) 10^3/uL Absolute Lymphocytes 1.92 (1.2-3.4) 10^3/uL Absolute Monocytes 0.65 (0.1-0.8) 10^3/uL Absolute Eosinophils 0.29 (0.0-0.7) 10^3/uL Absolute Basophils 0.04 (0.0-0.2) 10^3/uL PT 10.8 (9.1-11.1) sec INR 1.1 (0.9-1.1) APTT 25.1 (20.6-30.2) sec Sodium 142 (136-145) mmol/L Potassium 4.6 (3.5-5.1) mmol/L Chloride 108 H (98-107) mmol/L Carbon Dioxide 27.6 (21.0-32.0) mmol/L Anion Gap 6.4 (3-11) mmol/L BUN 26 H (7-18) mg/dL Creatinine 1.0 (0.70-1.30) mg/dL Est GFR (CKD-EPI 2020) 83.52 (mL/min/1.73m2) Glucose 189 H (74-106) mg/dL Hemoglobin A1c Calcium 9.4 (8.5-10.1) mg/dL Magnesium 1.9 (1.8-2.4) mg/dL Total Bilirubin 0.4 (0.2-1.0) mg/dL AST 17 (15-37) U/L ALT 23 (16-63) U/L Alkaline Phosphatase 94 (46-116) U/L Troponin I 282 H* 299 H* (<or=76) ng/L NT-Pro-B Natriuret Pep 1693 H (<300) pg/mL Total Protein 6.6 (6.4-8.2) g/dL Albumin 3.2 L (3.4-5.0) g/dL Lipase 18 (<78) U/L Add-On Test Request DONE Intake and Output - 24 Hour Total 05/01/25 21:48 thru 05/01/25 21:51 Weight 97.9 kg Falls Risk Assessment History of Falls No History 05/01/25 23:23 Contributing Factors No Factors 05/01/25 23:23 Ambulatory Aids Independent 05/01/25 23:23 Tubes/Lines None 05/01/25 23:23 Gait Evaluation No gait disturbance 05/01/25 23:23 Cognition No cognitive impairment 05/01/25 23:23 Fall Total Score 0 05/01/25 23:23 Level of Risk Standard/Low Risk 05/01/25 23:23 v v v v v v v v v Sending and/or Receiving Nurses: Please use comment section below to note any information pertinent to the patient hand-off not included above. Information / Comments: Report taken from HOME COORDINATOR Art, patient came in with dull chest pain several days ago but worst today, pain does not radiates anywhere. AO x 4., pleasant, has g. 20 Lt AC, Heparin drip infusing 10 mls./hr. Report received from:
[2025-05-02 01:09] LABS: Hemoglobin A1C 5.8 % (<5.7)
[2025-05-02 03:21] LABS: Troponin I 329 ng/L (<or=76)
[2025-05-02] MEDS: Albuterol 2.5 MG/3 ML INH SOLN VIAL UPD (04:04)
[2025-05-02] MEDS: Normal Saline Flush 10 ML SYR IVP (04:46)
[2025-05-02] MEDS: Furosemide 20 MG/2 ML VIAL IVP (04:47)
[2025-05-02 05:59] LABS: Abs Immature Grans 0.04 10^3/uL (0.0-0.06); HCT 41.0 % (40.0-50.0); HGB 14.3 g/dL (13.5-17.5); Immature Grans % 0.4 %; MCH 29.7 pg (27.0-33.0); MCHC 34.9 % (32.0-36.0); MCV 85 fL (80-95); MPV 9.5 fL (8.0-11.0); Platelet Count 194 10^3/uL (130-400); RBC 4.81 10^6/uL (4.36-5.78); RDW 13.2 % (11.8-14.1); RDW-SD 40.3 fL; WBC 9.22 10^3/uL (4.4-10.8)
[2025-05-02 06:13] LABS: INR 1.0 (0.9-1.1); Prothrombin Time 10.3 sec (9.1-11.1)
[2025-05-02 06:26] LABS: ALT 28 U/L (16-63); AST 12 U/L (15-37); Albumin 3.7 g/dL (3.4-5.0); Alkaline Phosphatase 104 U/L (46-116); Anion Gap 11.1 mmol/L (3-11); BUN 23 mg/dL (7-18); Bilirubin, Total 0.7 mg/dL (0.2-1.0); CO2 25.9 mmol/L (21.0-32.0); Calcium 9.9 mg/dL (8.5-10.1); Chloride 106 mmol/L (98-107); Estimated GFR 74.50 (mL/min/1.73m2); Glucose 114 mg/dL (74-106); Potassium 3.8 mmol/L (3.5-5.1); Sodium 143 mmol/L (136-145); Total Protein 7.3 g/dL (6.4-8.2)
[2025-05-02 07:25] LABS: PTT Activated 40.3 sec (20.6-30.2)
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
[2025-05-02] MEDS: Montelukast 10 MG TAB PO (09:06)
[2025-05-02] MEDS: Gabapentin 300 MG CAP PO (09:07)
[2025-05-02] MEDS: Omeprazole 20 MG CAPCR PO (09:07)
[2025-05-02] MEDS: Cholecalciferol (Vitamin D3) 1,000 UNIT TAB 1000 UNITS PO (09:07)
[2025-05-02] MEDS: Metoprolol 50 MG TAB 100 MG PO (09:07)
[2025-05-02] MEDS: NIFEdipine-CR 30 MG TABCR 60 MG PO (09:08)
[2025-05-02] MEDS: Cetirizine 10 MG TAB PO (09:08)
[2025-05-02] MEDS: buPROPion-XL 150 MG TABCR PO (09:08)
[2025-05-02] MEDS: Lisinopril 5 MG TAB PO (09:08)
--- NOTE | 2025-05-02 09:30 | RT.EKG_ITS ---
APPROVED REPORT Exam: Resting ECG Reason for Exam: ? ST elevation Patient Location: I HR:76 bpm ECG Measurements Heart Rate 76 AXIS TX 221 P 44 QRSd 103 QRS -65 QT 376 T 190 QTc 423 Conclusion Sinus rhythm...normal P axis, V-rate 50- 99 Prolonged TX interval...TX >220, V-rate 50- 90 Left anterior fascicular block...axis(240,-40), init forces inf Posterior infarct, old...prom R T, V1-V3 or Q >40mS, V7-V9 Nonspecific repol abnormality, diffuse leads...ST dep, T flat/neg, ant/lat/inf Baseline wander in lead(s) II,III,aVF
[2025-05-02 11:13] LABS: Lab Add On Test DONE
[2025-05-02 11:36] LABS: Troponin I 384 ng/L (<or=76)
[2025-05-02] MEDS: Furosemide 40 MG/4 ML VIAL IVP (13:12)
[2025-05-02 14:29] LABS: PTT Activated 45.0 sec (20.6-30.2)
[2025-05-02] MEDS: Heparin in 0.45% NaCl 25,000 UNIT/250 ML BAG 14 UNIT IVINF (14:49)
--- NOTE | 2025-05-02 16:06 | W.PM.PROGNOT ---
Date of Service Date of service: 05/02/25 Time of Service: 16:06 Assessment and Plan Assessment and plan (1) Non-ST elevation ND (NSTEMI): Status: Acute Assessment and plan: Patient be on heparin drip as well as Ticagrelor. Awaiting a bed and transport for definitive intervention at [facility]. Troponins 282, 329, 384 - fourth pending at time of writing. Denies chest pain. (2) Hypercholesterolemia: Assessment and plan: Continue atorvastatin 80 mg p.o. daily (3) HTN (hypertension): Assessment and plan: Given that the patient is on metoprolol and nifedipine, adding an SAGE inhibitor - lisinopril - helps further optimize blood pressure control and provide renal protection, especially future cardiovascular risks. (4) Diabetes mellitus: Assessment and plan: HgbA1c 5.8. Patient is on semaglutide. Hold while hospitalized. Subjective Subjective Patient reports: no new complaints, feels better, pain is less, tolerating liquids well, tolerating a regular diet, voiding w/o difficulty, bowel movement and afebrile; denies diarrhea, nausea, vomiting or shortness of breath Interval history since last seen: Awake, alert conversant, pleasant, sitting on the side of the bed, family in the room. He states since he received lasix his breathing is much better. He denies chest pain. Exam Narrative Exam Narrative: HEENT: Normocephalic, atraumatic. Mucous membranes moist. Oropharynx clear without erythema or exudate. Neck: No lymphadenopathy. No jugular venous distention. No thyromegaly. Cardiovascular: No murmurs, rubs, or gallops. Heart sounds clear to auscultation bilaterally. Pulmonary: Lungs clear to auscultation bilaterally. Good air exchange with no use of accessory muscles. Abdomen: Soft, non-tender, and non-distended. Active bowel sounds. Abdomen slightly protuberant. Extremities: 2+ lower extremity edema, extending up to the calves. Neurologic: Cranial nerves II through XII intact as tested. Reflexes normal in extremities as tested. Psychiatric: Alert and oriented x3. No apparent distress. Objective Last Vital Signs Temp 36.9 C 05/02/25 15:45 Pulse 82 05/02/25 15:45 Resp 14 05/02/25 15:45 BP 138/86 05/02/25 15:45 Pulse Ox 98 05/02/25 15:45 Laboratory Results - last 24 hr 05/01/25 05/01/25 05/02/25 22:02 23:15 02:45 WBC 8.24 RBC 4.40 Hgb 13.0 L Hct 38.0 L MCV 86 MCH 29.5 MCHC 34.2 RDW 13.3 Plt Count 172 MPV 9.3 Immature Gran % 0.4 Neutrophils % 64.4 Lymphocytes % 23.3 Monocytes % 7.9 Eosinophils % 3.5 Basophils % 0.5 Nucleated RBC % 0.0 Absolute Neutrophils 5.31 Absolute Lymphocytes 1.92 Absolute Monocytes 0.65 Absolute Eosinophils 0.29 Absolute Basophils 0.04 PT 10.8 INR 1.1 APTT 25.1 Sodium 142 Potassium 4.6 Chloride 108 H Carbon Dioxide 27.6 Anion Gap 6.4 BUN 26 H Creatinine 1.0 Est GFR (CKD-EPI 2020) 83.52 Glucose 189 H Hemoglobin A1c 5.8 H Calcium 9.4 Magnesium 1.9 Total Bilirubin 0.4 AST 17 ALT 23 Alkaline Phosphatase 94 Troponin I 299 H* 282 H* 329 H* NT-Pro-B Natriuret Pep 1693 H Total Protein 6.6 Albumin 3.2 L Lipase 18 Add-On Test Request DONE 05/02/25 05/02/25 05:35 14:00 WBC 9.22 RBC 4.81 Hgb 14.3 Hct 41.0 MCV 85 MCH 29.7 MCHC 34.9 RDW 13.2 Plt Count 194 MPV 9.5 Immature Gran % 0.4 Neutrophils % 63.7 Lymphocytes % 25.8 Monocytes % 6.0 Eosinophils % 3.7 Basophils % 0.4 Nucleated RBC % 0.0 Absolute Neutrophils 5.87 Absolute Lymphocytes 2.38 Absolute Monocytes 0.55 Absolute Eosinophils 0.34 Absolute Basophils 0.04 PT 10.3 INR 1.0 APTT 40.3 H 45.0 H Sodium 143 Potassium 3.8 Chloride 106 Carbon Dioxide 25.9 Anion Gap 11.1 H BUN 23 H Creatinine 1.1 Est GFR (CKD-EPI 2020) 74.50 Glucose 114 H Hemoglobin A1c Calcium 9.9 Magnesium Total Bilirubin 0.7 AST 12 L ALT 28 Alkaline Phosphatase 104 Troponin I 384 H* NT-Pro-B Natriuret Pep Total Protein 7.3 Albumin 3.7 Lipase Add-On Test Request DONE Time Spent with Patient Time Spent with Patient: 25-34 minutes Time was spent: preparing to see the patient(eg.review tests), ordering medications,tests, procedures, referring, communicating with other health tire care manager, indepentently interpreting results, counseling the patient and care coordination
[2025-05-02 17:50] LABS: Troponin I 450 ng/L (<or=76)
[2025-05-02] MEDS: Acetaminophen 325 MG TAB PO (18:53)
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
== END 2025-05-02 19:14 | disposition short-term general hospital (02) | DRG 281 ==
LOC: ER 05-02 00:54 → MS 05-02 00:58
PROVIDERS: Physician Assistant; Admitting Provider Hospitalist; Emergency Provider Student in an Organized Health Care Education/Training Program; PCP Internal Medicine; Responsible Provider Nurse Practitioner Family; Visit Provider Hospitalist
DX: I21.4 Non-ST elevation (NSTEMI) myocardial infarction (principal); F33.9 Major depressive disorder, recurrent, unspecified; I10 Essential (primary) hypertension; E78.00 Pure hypercholesterolemia, unspecified; E11.9 Type 2 diabetes mellitus without complications; Z79.85 Long-term (current) use of injectable non-insulin antidiabetic drugs; F43.12 Post-traumatic stress disorder, chronic; E66.9 Obesity, unspecified; F41.1 Generalized anxiety disorder; K21.9 Gastro-esophageal reflux disease without esophagitis; G20.B1 Parkinson's disease with dyskinesia, without mention of fluctuations; G47.00 Insomnia, unspecified; Z68.31 Body mass index [BMI] 31.0-31.9, adult
CPT/HCPCS: 00123; 36415; 71275; 80053; 83690; 93005; 96365; 99291; 83036; 83735; 83880; 84484; 85025; 85610; 85730; 93010; 93306; 94640; 94760; 99222; 99236; J1644; J1938; J3490; J7613

== ENCOUNTER 2025-05-09 11:56 | Emergency (ER) | payer OTHER, SELFPAY ==
[2025-05-09] VITALS (18 sets, daily range): BP systolic 138–164; BP diastolic 73–97; PULSE 83–117; RESP 11–30; TEMP 37.2; O2SAT 96–99
--- NOTE | 2025-05-09 12:00 | RT.EKG_ITS ---
APPROVED REPORT Exam: Resting ECG Reason for Exam: N/V - recent cardiac stent placement Patient Location: E HR:96 bpm ECG Measurements Heart Rate 96 AXIS MA 165 P 69 QRSd 91 QRS 266 QT 361 T 49 QTc 457 Conclusion Sinus rhythm...normal P axis, V-rate 60- 99 Posterior infarct, old...prom R T, V1-V3 or Q >40mS, V7-V9 Sinus rhythm, left axis deviation, LAFB, ST depression V1-V4. When compared to prior 05/02/25 no longer has prolonged MA, ST depressions are new. WD
[2025-05-09 13:20] LABS: Abs Immature Grans 0.04 10^3/uL (0.0-0.06); HCT 45.0 % (40.0-50.0); HGB 15.4 g/dL (13.5-17.5); Immature Grans % 0.5 %; MCH 29.1 pg (27.0-33.0); MCHC 34.2 % (32.0-36.0); MCV 85 fL (80-95); MPV 8.8 fL (8.0-11.0); Platelet Count 270 10^3/uL (130-400); RBC 5.29 10^6/uL (4.36-5.78); RDW 13.2 % (11.8-14.1); RDW-SD 40.8 fL; WBC 8.23 10^3/uL (4.4-10.8)
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
[2025-05-09 13:50] LABS: ALT 12 U/L (16-63); AST 21 U/L (15-37); Albumin 4.3 g/dL (3.4-5.0); Alkaline Phosphatase 108 U/L (46-116); Anion Gap 11.5 mmol/L (3-11); BUN 15 mg/dL (7-18); Bilirubin, Total 1.0 mg/dL (0.2-1.0); CO2 25.5 mmol/L (21.0-32.0); Calcium 10.5 mg/dL (8.5-10.1); Chloride 103 mmol/L (98-107); Estimated GFR 67.11 (mL/min/1.73m2); Glucose 143 mg/dL (74-106); Lipase 9 U/L (<78); Magnesium 1.9 mg/dL (1.8-2.4); Potassium 4.1 mmol/L (3.5-5.1); Sodium 140 mmol/L (136-145); Total Protein 8.3 g/dL (6.4-8.2); Troponin I 49 ng/L (<or=76)
--- NOTE | 2025-05-09 14:00 | DI.RAD_ITS ---
Exam(s) XR CHEST 2V PA LATERAL EXAM: XR CHEST 2V PA LATERAL CLINICAL HISTORY: recent cath and stent, now nausea. TECHNIQUE: 2D digital imaging was performed. COMPARISON: CT CT CHEST PE CTA from 05/01/2025 FINDINGS: 2 views: Heart size is normal. The mediastinum is not widened. There is subsegmental platelike atelectasis in the right lower lobe. No confluent infiltrates nor pleural effusions. No pulmonary edema. Small benign granuloma in the lateral aspect of the right lower lobe noted. IMPRESSION: There is subsegmental platelike atelectasis in the right lower lobe. No other pulmonary findings no obvious pleural effusions nor evidence of pulmonary edema. DATA REPOSITORY: RADIATION DOSE DELIVERED:
[2025-05-09] MEDS: Ondansetron 4 MG/2 ML VIAL IVP (14:11)
[2025-05-09] MEDS: Pantoprazole 40 MG VIAL IVP (14:11)
[2025-05-09] MEDS: Lactated Ringers 1,000 ML 500 ML IV (14:11)
[2025-05-09 15:12] LABS: Troponin I 48 ng/L (<or=76)
[2025-05-09 15:59] LABS: Troponin I 51 ng/L (<or=76)
== END 2025-05-09 16:54 | disposition home or self-care (01) ==
PROVIDERS: Emergency Medicine Emergency Medical Services; Emergency Provider Physician Assistant; PCP Internal Medicine
DX: R11.2 Nausea with vomiting, unspecified (principal); Z98.61 Coronary angioplasty status; I25.2 Old myocardial infarction
CPT/HCPCS: 36415; 80053; 83690; 93005; 96361; 96374; 96375; 99284; 71046; 83735; 84484; 85025; 93010; J2405; J2470

== ENCOUNTER 2025-05-26 17:20 | Emergency (ER) | payer OTHER, SELFPAY ==
--- NOTE | 2025-05-26 17:30 | RT.EKG_ITS ---
APPROVED REPORT Exam: Resting ECG Reason for Exam: sob Patient Location: E HR:80 bpm ECG Measurements Heart Rate 80 AXIS AL 226 P 39 QRSd 89 QRS -84 QT 385 T 47 QTc 444 Conclusion Sinus rhythm...normal P axis, V-rate 60- 99 Multiple ventricular premature complexes...V complexes w/ short R-R intervls Prolonged AL interval...AL >220, V-rate 50- 90 Left anterior fascicular block...axis(240,-40), init forces inf Right ventricular hypertrophy...prominent R or R' w/ RAD or ANNETTE No STEMI
[2025-05-26 17:33] VITALS: BP 123/79; PULSE 77; RESP 16; TEMP 36.9; O2SAT 97
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
--- NOTE | 2025-05-26 18:15 | DI.RAD_ITS ---
Exam(s) XR WRIST LT COMPLETE EXAM: XR WRIST LT COMPLETE CLINICAL HISTORY: Swelling pain. TECHNIQUE: 2D digital imaging was performed. COMPARISON: No exams were available for comparison FINDINGS: 3 views No evidence of fracture nor dislocation nor significant ulnar variance. Scaphoid and scapholunate distance are normal. Bone density normal. No osseous lesions nor erosions. IMPRESSION: No significant osseous findings in the left wrist. DATA REPOSITORY: RADIATION DOSE DELIVERED:
--- NOTE | 2025-05-26 18:15 | DI.RAD_ITS ---
Exam(s) XR WRIST RT COMPLETE EXAM: XR WRIST RT COMPLETE CLINICAL HISTORY: Swelling, pain. TECHNIQUE: 2D digital imaging was performed. COMPARISON: No exams were available for comparison FINDINGS: 3 views No evidence of acute fracture nor dislocation nor significant ulnar variance. Scaphoid and scapholunate distance are normal. No degenerative changes nor erosions. No osseous lesions. Bone density is normal. IMPRESSION: No significant osseous findings in the right wrist. DATA REPOSITORY: RADIATION DOSE DELIVERED:
[2025-05-26 19:06] LABS: Abs Immature Grans 0.06 10^3/uL (0.0-0.06); HCT 40.4 % (40.0-50.0); HGB 13.9 g/dL (13.5-17.5); Immature Grans % 0.6 %; MCH 29.0 pg (27.0-33.0); MCHC 34.4 % (32.0-36.0); MCV 84 fL (80-95); MPV 9.1 fL (8.0-11.0); Platelet Count 210 10^3/uL (130-400); RBC 4.80 10^6/uL (4.36-5.78); RDW 13.0 % (11.8-14.1); RDW-SD 39.7 fL; WBC 10.27 10^3/uL (4.4-10.8)
[2025-05-26 19:19] LABS: INR 1.1 (0.9-1.1); PTT Activated 27.3 sec (20.6-30.2); Prothrombin Time 11.0 sec (9.1-11.1)
--- NOTE | 2025-05-26 19:21 | DI.RAD_ITS ---
Exam(s) XR CHEST 2V PA LATERAL EXAM: XR CHEST 2V PA LATERAL CLINICAL HISTORY: Chest pain. TECHNIQUE: 2D digital imaging was performed. COMPARISON: No exams were available for comparison FINDINGS: 2 views: Heart size is normal. The mediastinum is not widened. There is subsegmental platelike atelectasis in the right lower lobe, unchanged. A small calcified granuloma in the lateral right lung base is unchanged. No new infiltrates nor pleural effusions. No pulmonary edema. No fractures. IMPRESSION: No acute pulmonary findings.Platelike atelectasis or scarring in the right lower lobe again noted. No radiographic change compared to 05/09/2025. DATA REPOSITORY: RADIATION DOSE DELIVERED:
[2025-05-26 19:32] LABS: ALT 27 U/L (16-63); AST 10 U/L (15-37); Albumin 3.4 g/dL (3.4-5.0); Alkaline Phosphatase 84 U/L (46-116); Anion Gap 9.4 mmol/L (3-11); BUN 26 mg/dL (7-18); Bilirubin, Total 0.8 mg/dL (0.2-1.0); CO2 25.6 mmol/L (21.0-32.0); Calcium 9.8 mg/dL (8.5-10.1); Chloride 106 mmol/L (98-107); Estimated GFR 94.78 (mL/min/1.73m2); Glucose 130 mg/dL (74-106); Lipase 9 U/L (<78); Magnesium 2.0 mg/dL (1.8-2.4); Potassium 4.3 mmol/L (3.5-5.1); Sodium 141 mmol/L (136-145); Total Protein 6.9 g/dL (6.4-8.2); Troponin I 12 ng/L (<or=76)
--- NOTE | 2025-05-26 19:36 | DI.VRAD_ITS ---
PROCEDURE INFORMATION: Exam: XR Right Wrist Exam date and time: 05/26/2025 19:17 Age: 64 years old Clinical indication: Wrist; Bilateral; Swelling, pain TECHNIQUE: Imaging protocol: Radiologic exam of the right wrist. Views: 3 or more views. COMPARISON: No relevant prior studies available. FINDINGS: Bones/joints: No acute fracture or subluxation. Minimal radiocarpal and 1st carpometacarpal degenerative changes. Soft tissues: Generalized soft tissue swelling. IMPRESSION: No acute bony pathology. Dictated and Authenticated by: Malika Hollis MD. Orderin Guanakito Umana MD
--- NOTE | 2025-05-26 19:37 | DI.VRAD_ITS ---
PROCEDURE INFORMATION: Exam: XR Chest Exam date and time: 05/26/2025 19:15 Age: 64 years old Clinical indication: Chest pressure; Chest pain TECHNIQUE: Imaging protocol: Radiologic exam of the chest. Views: 2 views. COMPARISON: CR XR CHEST 2V PA LATERAL 05/09/2025 15:49 FINDINGS: Lungs: Benign calcified right lower lobe granuloma, similar to prior. No airspace consolidation. No significant interstitial disease for the degree of inflation. Pleural spaces: No pleural effusion. No pneumothorax. Heart/Mediastinum: No cardiomegaly. Bones/joints: No acute fracture. IMPRESSION: No acute cardiopulmonary pathology. Dictated and Authenticated by: Malika Hollis MD. Orderin Guanakito Umana MD
--- NOTE | 2025-05-26 19:37 | DI.VRAD_ITS ---
PROCEDURE INFORMATION: Exam: XR Left Wrist Exam date and time: 05/26/2025 19:19 Age: 64 years old Clinical indication: Wrist; Bilateral; Swelling, pain TECHNIQUE: Imaging protocol: Radiologic exam of the left wrist. Views: 3 or more views. COMPARISON: CR XR FOREARM LT 03/17/2024 14:23 FINDINGS: Bones/joints: No acute fracture or subluxation. Scattered minimal degenerative changes. Soft tissues: Soft tissue swelling dorsally. IMPRESSION: No acute bony pathology. Dictated and Authenticated by: Malika Hollis MD. Orderin Guanakito Umana MD
[2025-05-26 20:04] VITALS: BP 137/85; PULSE 80; RESP 16; O2SAT 98
[2025-05-26 20:24] LABS: Troponin I 12 ng/L (<or=76)
[2025-05-26] MEDS: Acetaminophen 500 MG TAB 1000 MG PO (21:01)
[2025-05-26 21:54] VITALS: BP 141/84; PULSE 76; RESP 16; O2SAT 98
--- NOTE | 2025-05-27 10:33 | NUR.NOTE ---
Access chart to reconcile EKG's in [facility] with EKG orders. EKG needs to be read. Nursing Note:
== END 2025-05-26 21:58 | disposition home or self-care (01) ==
PROVIDERS: Emergency Provider Registered Nurse Emergency; PCP Internal Medicine
DX: I20.0 Unstable angina (principal); R11.2 Nausea with vomiting, unspecified; M79.89 Other specified soft tissue disorders; R06.02 Shortness of breath
CPT/HCPCS: 99284 ×2; 36415; 80053; 83690; 93005; 71046; 73110; 83735; 84484; 85025; 85610; 85730; 93010

== ENCOUNTER 2025-08-26 12:06 | Emergency (ER) | payer OTHER, SELFPAY ==
[2025-08-26 12:07] VITALS: BP 142/92; PULSE 70; RESP 18; TEMP 36.3; O2SAT 96
[2025-08-26 12:21] VITALS: BP 142/92; PULSE 70; RESP 18; TEMP 36.3; O2SAT 96
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
== END 2025-08-26 12:47 | disposition home or self-care (01) ==
PROVIDERS: Emergency Provider Student in an Organized Health Care Education/Training Program; PCP Internal Medicine
DX: S50.11XA Contusion of right forearm, initial encounter (principal); G20.B1 Parkinson's disease with dyskinesia, without mention of fluctuations; I10 Essential (primary) hypertension; R78.5 Finding of other psychotropic drug in blood; E11.9 Type 2 diabetes mellitus without complications; I25.2 Old myocardial infarction; Z79.85 Long-term (current) use of injectable non-insulin antidiabetic drugs; Z87.891 Personal history of nicotine dependence
CPT/HCPCS: 76882; 99284; 99283